=== PATIENT | male | born 1955 ===

== ENCOUNTER 2020-08-07 06:56 | Outpatient (REF) | payer MEDICARE, MEDICAID, SELFPAY ==
[2020-08-07 07:48] LABS: Anion Gap 12 (12-20); Blood Urea Nitrogen 11 mg/dL (9-16); Calcium 9.1 mg/dL (8.4-10.2); Carbon Dioxide 29 mmol/L (22-29); Chloride 98 mmol/L (96-108); Estimated Glomerular Filt Rate > 60; Glucose Random 330 mg/dL (60-115); Potassium 3.9 mmol/l (3.3-5.1); Sodium 135 mmol/L (135-145)
[2020-08-07 08:13] LABS: Free T4 (Free Thyroxine) 1.09 ng/dL (0.71-1.85); Vitamin D 25-OH Total 22.3 ng/mL (>30)
[2020-08-08 19:27] LABS: Lutenizing Hormone 4.2 mIU/mL (1.6-15.2); Triiodothyronine T3 Total 66 ng/dL (76-181)
[2020-08-08 21:48] LABS: Sex Hormone Binding Globulin 35 nmol/L (22-77)
[2020-08-08 23:21] LABS: Adrenocorticotropic Hormone 15 pg/mL (6-50)
[2020-08-12 15:42] LABS: Testosterone, Free 47.5 pg/mL (35.0-155.0); Testosterone, Total 299 ng/dL (250-1100)
== END 2020-08-07 06:57 | disposition home or self-care (01) ==
LOC: HO.LAB 06:56
PROVIDERS: Visit Provider Internal Medicine
DX: E27.40 Unspecified adrenocortical insufficiency (principal); E23.0 Hypopituitarism; E03.9 Hypothyroidism, unspecified; E55.9 Vitamin D deficiency, unspecified
CPT/HCPCS: 80048; 82024; 82306; 82533; 83001; 83002; 84270; 84402; 84403; 84439; 84443; 84480

== ENCOUNTER → 2020-09-05 07:36 | Outpatient (BNVA) | payer MEDICARE, MEDICAID, SELFPAY | PROVIDERS: Visit Provider Internal Medicine | DX: Z13.89 Encounter for screening for other disorder (principal) | CPT/HCPCS: Q3014 ==

== ENCOUNTER 2020-09-11 08:15 | Outpatient (REF) | payer MEDICARE, MEDICAID, SELFPAY ==
[2020-09-11 09:52] LABS: Anion Gap 10 (12-20); Blood Urea Nitrogen 12 mg/dL (9-16); Calcium 9.3 mg/dL (8.4-10.2); Carbon Dioxide 33 mmol/L (22-29); Chloride 101 mmol/L (96-108); Estimated Glomerular Filt Rate > 60; Glucose Random 173 mg/dL (60-115); Potassium 4.4 mmol/l (3.3-5.1); Sodium 140 mmol/L (135-145)
[2020-09-11 10:16] LABS: Free T4 (Free Thyroxine) 0.98 ng/dL (0.71-1.85); Thyroid Stimulating Hormone 4.92 uIU/mL (0.32-4.0); Vitamin D 25-OH Total 29.4 ng/mL (>30)
[2020-09-12 14:18] LABS: Triiodothyronine T3 Total 77 ng/dL (76-181)
[2020-09-12 22:53] LABS: Adrenocorticotropic Hormone 10 pg/mL (6-50)
== END 2020-09-11 08:16 | disposition home or self-care (01) ==
LOC: HO.LAB 08:15
PROVIDERS: Visit Provider Internal Medicine
DX: E55.9 Vitamin D deficiency, unspecified (principal); E03.9 Hypothyroidism, unspecified; E27.40 Unspecified adrenocortical insufficiency; E23.0 Hypopituitarism
CPT/HCPCS: 80048; 82024; 82306; 82533; 84439; 84443; 84480

== ENCOUNTER → 2020-10-24 13:17 | Outpatient (BNVA) | payer MEDICARE, MEDICAID, SELFPAY | PROVIDERS: Visit Provider Internal Medicine | DX: Z76.89 Persons encountering health services in other specified circumstances (principal) | CPT/HCPCS: Q3014 ==

== ENCOUNTER 2020-10-26 06:47 | Outpatient (REF) | payer MEDICARE, MEDICAID, SELFPAY ==
[2020-10-26 08:08] LABS: Anion Gap 13 (12-20); Blood Urea Nitrogen 13 mg/dL (9-16); Calcium 9.3 mg/dL (8.4-10.2); Carbon Dioxide 30 mmol/L (22-29); Chloride 99 mmol/L (96-108); Estimated Glomerular Filt Rate > 60; Glucose Random 365 mg/dL (60-115); Sodium 138 mmol/L (135-145)
[2020-10-26 08:09] LABS: Free T4 (Free Thyroxine) 1.02 ng/dL (0.71-1.85); Thyroid Stimulating Hormone 6.35 uIU/mL (0.32-4.0); Vitamin D 25-OH Total 32.4 ng/mL (>30)
[2020-10-27 04:03] LABS: Follicle Stimulating Hormone 4.9 mIU/mL (1.6-8.0); Lutenizing Hormone 4.9 mIU/mL (1.6-15.2); Triiodothyronine T3 Total 71 ng/dL (76-181)
[2020-10-27 05:57] LABS: Sex Hormone Binding Globulin 46 nmol/L (22-77)
[2020-10-29 23:01] LABS: Adrenocorticotropic Hormone 13 pg/mL (6-50)
[2020-10-31 12:22] LABS: Testosterone, Free 47.1 pg/mL (35.0-155.0); Testosterone, Total 341 ng/dL (250-1100)
== END 2020-10-26 06:48 | disposition home or self-care (01) ==
LOC: HO.LAB 06:47
PROVIDERS: PCP Internal Medicine; Visit Provider Internal Medicine
DX: E27.40 Unspecified adrenocortical insufficiency (principal); E03.9 Hypothyroidism, unspecified; E23.0 Hypopituitarism; E55.9 Vitamin D deficiency, unspecified
CPT/HCPCS: 36415; 80048; 82024; 82306; 82533; 83001; 83002; 84270; 84402; 84403; 84439; 84443; 84480

== ENCOUNTER → 2020-12-10 11:25 | Outpatient (BNVA) | payer MEDICARE, MEDICAID, SELFPAY | PROVIDERS: PCP Internal Medicine; Visit Provider Internal Medicine | DX: E27.40 Unspecified adrenocortical insufficiency (principal); E23.0 Hypopituitarism; E03.9 Hypothyroidism, unspecified; E55.9 Vitamin D deficiency, unspecified | CPT/HCPCS: Q3014 ==

== ENCOUNTER 2020-12-11 07:11 | Outpatient (REF) | payer MEDICARE, MEDICAID, SELFPAY ==
[2020-12-11 08:08] LABS: Anion Gap 15 (12-20); Blood Urea Nitrogen 14 mg/dL (9-16); Calcium 9.2 mg/dL (8.4-10.2); Carbon Dioxide 29 mmol/L (22-29); Chloride 98 mmol/L (96-108); Estimated Glomerular Filt Rate > 60; Glucose Random 255 mg/dL (60-115); Potassium 3.8 mmol/L (3.3-5.1); Sodium 138 mmol/L (135-145)
[2020-12-11 08:31] LABS: Free T4 (Free Thyroxine) 1.35 ng/dL (0.71-1.85); Thyroid Stimulating Hormone 1.65 uIU/mL (0.32-4.0); Vitamin D 25-OH Total 29.1 ng/mL (>30)
[2020-12-12 02:41] LABS: Triiodothyronine T3 Total 69 ng/dL (76-181)
[2020-12-12 04:41] LABS: Sex Hormone Binding Globulin 35 nmol/L (22-77)
[2020-12-12 23:26] LABS: Adrenocorticotropic Hormone 12 pg/mL (6-50)
[2020-12-17 15:12] LABS: Testosterone, Free 41.5 pg/mL (35.0-155.0); Testosterone, Total 290 ng/dL (250-1100)
== END 2020-12-11 07:12 | disposition home or self-care (01) ==
LOC: HO.LAB 07:11
PROVIDERS: PCP Internal Medicine; Visit Provider Internal Medicine
DX: E03.9 Hypothyroidism, unspecified (principal); E27.40 Unspecified adrenocortical insufficiency; E23.0 Hypopituitarism; E55.9 Vitamin D deficiency, unspecified
CPT/HCPCS: 36415; 80048; 82024; 82306; 82533; 84270; 84402; 84403; 84439; 84443; 84480

== ENCOUNTER → 2021-01-16 13:34 | Outpatient (BNVA) | payer MEDICARE, MEDICAID, SELFPAY | PROVIDERS: PCP Internal Medicine; Visit Provider Internal Medicine | CPT/HCPCS: Q3014 ==

== ENCOUNTER → 2021-03-20 12:15 | Outpatient (BNVA) | payer MEDICARE, MEDICAID, SELFPAY | PROVIDERS: PCP Internal Medicine; Visit Provider Internal Medicine | DX: E27.40 Unspecified adrenocortical insufficiency (principal); E23.0 Hypopituitarism; E03.9 Hypothyroidism, unspecified; N40.0 Benign prostatic hyperplasia without lower urinary tract symptoms; R53.83 Other fatigue; E55.9 Vitamin D deficiency, unspecified; Z87.891 Personal history of nicotine dependence; Z91.041 Radiographic dye allergy status; Z79.4 Long term (current) use of insulin; Z79.52 Long term (current) use of systemic steroids; Z79.899 Other long term (current) drug therapy | CPT/HCPCS: Q3014 ==

== ENCOUNTER → 2021-09-18 10:15 | Outpatient (BNVA) | payer MEDICARE, MEDICAID, SELFPAY | PROVIDERS: PCP Internal Medicine; Visit Provider Internal Medicine | DX: Z13.89 Encounter for screening for other disorder (principal) | CPT/HCPCS: Q3014 ==

== ENCOUNTER 2021-09-19 06:53 | Outpatient (REF) | payer MEDICARE, MEDICAID, SELFPAY ==
[2021-09-19 07:53] LABS: Anion Gap 10 (12-20); Blood Urea Nitrogen 15 mg/dL (9-16); Calcium 9.5 mg/dL (8.4-10.2); Carbon Dioxide 30 mmol/L (22-29); Chloride 103 mmol/L (96-108); Estimated Glomerular Filt Rate > 60; Glucose Random 262 mg/dL (60-115); Potassium 3.4 mmol/L (3.3-5.1); Sodium 140 mmol/L (135-145)
[2021-09-19 08:15] LABS: Free T4 (Free Thyroxine) 1.42 ng/dL (0.71-1.85); Thyroid Stimulating Hormone 0.09 uIU/mL (0.32-4.0); Vitamin D 25-OH Total 33.7 ng/mL (>30)
[2021-09-20 08:41] LABS: Triiodothyronine T3 Total 101 ng/dL (76-181)
[2021-09-20 09:11] LABS: Sex Hormone Binding Globulin 52 nmol/L (22-77)
[2021-09-22 15:07] LABS: Adrenocorticotropic Hormone 12 pg/mL (6-50)
[2021-09-24 20:41] LABS: Testosterone, Free 66.2 pg/mL (35.0-155.0); Testosterone, Total 444 ng/dL (250-1100)
== END 2021-09-19 06:54 | disposition home or self-care (01) ==
LOC: HO.LAB 06:53
PROVIDERS: Visit Provider Internal Medicine
DX: E27.40 Unspecified adrenocortical insufficiency (principal); E23.0 Hypopituitarism; E03.9 Hypothyroidism, unspecified; E55.9 Vitamin D deficiency, unspecified
CPT/HCPCS: 36415; 80048; 82024; 82306; 82533; 84270; 84402; 84403; 84439; 84443; 84480

== ENCOUNTER 2022-01-08 07:35 | Outpatient (REF) | payer MEDICARE, MEDICAID, SELFPAY ==
[2022-01-08 08:35] LABS: Anion Gap 10 (12-20); Blood Urea Nitrogen 17 mg/dL (9-16); Calcium 9.8 mg/dL (8.4-10.2); Carbon Dioxide 33 mmol/L (22-29); Chloride 102 mmol/L (96-108); Estimated Glomerular Filt Rate > 60; Glucose Random 182 mg/dL (60-115); Potassium 4.1 mmol/L (3.3-5.1); Sodium 141 mmol/L (135-145)
[2022-01-08 09:00] LABS: Free T4 (Free Thyroxine) 1.31 ng/dL (0.71-1.85); Thyroid Stimulating Hormone 2.65 uIU/mL (0.32-4.0); Vitamin D 25-OH Total 43.6 ng/mL (>30)
[2022-01-10 00:42] LABS: Sex Hormone Binding Globulin 67 nmol/L (22-77); Triiodothyronine T3 Total 76 ng/dL (76-181)
[2022-01-13 21:31] LABS: Adrenocorticotropic Hormone 18 pg/mL (6-50)
[2022-01-15 13:11] LABS: Testosterone, Free 40.6 pg/mL (35.0-155.0); Testosterone, Total 432 ng/dL (250-1100)
== END 2022-01-08 07:36 | disposition home or self-care (01) ==
LOC: HO.LAB 07:35
PROVIDERS: PCP Student in an Organized Health Care Education/Training Program; Visit Provider Internal Medicine
DX: E23.0 Hypopituitarism (principal); E03.9 Hypothyroidism, unspecified; E55.9 Vitamin D deficiency, unspecified; E27.40 Unspecified adrenocortical insufficiency
CPT/HCPCS: 36415; 80048; 82024; 82306; 82533; 84270; 84402; 84403; 84439; 84443; 84480

== ENCOUNTER → 2022-01-09 08:01 | Outpatient (BNVA) | payer MEDICARE, MEDICAID, SELFPAY | PROVIDERS: PCP Internal Medicine; Visit Provider Internal Medicine | DX: E23.0 Hypopituitarism (principal); E27.40 Unspecified adrenocortical insufficiency; E03.9 Hypothyroidism, unspecified; E55.9 Vitamin D deficiency, unspecified; Z79.52 Long term (current) use of systemic steroids; Z79.899 Other long term (current) drug therapy | CPT/HCPCS: Q3014 ==

== ENCOUNTER 2022-04-21 07:20 | Outpatient (REF) | payer MEDICARE, MEDICAID, SELFPAY ==
[2022-04-21 08:46] LABS: Anion Gap 14 (12-20); Blood Urea Nitrogen 13 mg/dL (9-16); Calcium 9.2 mg/dL (8.4-10.2); Carbon Dioxide 31 mmol/L (22-29); Chloride 101 mmol/L (96-108); Estimated Glomerular Filt Rate > 60; Glucose Random 91 mg/dL (60-115); Potassium 3.8 mmol/L (3.3-5.1); Sodium 142 mmol/L (135-145)
[2022-04-21 09:45] LABS: Cortisol Random 10.8 ug/dL
[2022-04-22 22:02] LABS: DHEA Sulfate 19 mcg/dL (20-217)
[2022-04-25 14:42] LABS: Adrenocorticotropic Hormone 19 pg/mL (6-50)
== END 2022-04-21 07:21 | disposition home or self-care (01) ==
LOC: HO.LAB 07:20
PROVIDERS: PCP Registered Nurse Psychiatric/Mental Health, Adult; Visit Provider Internal Medicine
DX: E27.40 Unspecified adrenocortical insufficiency (principal)
CPT/HCPCS: 36415; 80048; 82024; 82533; 82627

== ENCOUNTER 2022-05-10 07:42 | Outpatient (REF) | payer MEDICARE, MEDICAID, SELFPAY ==
[2022-05-10 08:42] LABS: Anion Gap 12 (12-20); Blood Urea Nitrogen 13 mg/dL (9-16); Calcium 9.2 mg/dL (8.4-10.2); Carbon Dioxide 34 mmol/L (22-29); Chloride 101 mmol/L (96-108); Estimated Glomerular Filt Rate > 60; Glucose Random 185 mg/dL (60-115); Sodium 143 mmol/L (135-145)
[2022-05-10 09:06] LABS: Free T4 (Free Thyroxine) 1.38 ng/dL (0.71-1.85); Thyroid Stimulating Hormone 0.56 uIU/mL (0.32-4.0)
== END 2022-05-10 07:43 | disposition home or self-care (01) ==
LOC: HO.LAB 07:42
PROVIDERS: Visit Provider Internal Medicine
DX: E27.40 Unspecified adrenocortical insufficiency (principal); E03.9 Hypothyroidism, unspecified
CPT/HCPCS: 36415; 80048; 84439; 84443

== ENCOUNTER → 2022-05-28 11:18 | Outpatient (BNVA) | payer MEDICARE, MEDICAID, SELFPAY | PROVIDERS: PCP Registered Nurse Psychiatric/Mental Health, Adult; Visit Provider Internal Medicine | DX: E23.0 Hypopituitarism (principal); E27.40 Unspecified adrenocortical insufficiency; E03.9 Hypothyroidism, unspecified; E55.9 Vitamin D deficiency, unspecified | CPT/HCPCS: 99212 ==

== ENCOUNTER → 2022-07-11 08:31 | Outpatient (BNVA) | payer MEDICARE, MEDICAID, SELFPAY | PROVIDERS: PCP Registered Nurse Psychiatric/Mental Health, Adult; Visit Provider Urology | DX: N40.0 Benign prostatic hyperplasia without lower urinary tract symptoms (principal); E23.0 Hypopituitarism | CPT/HCPCS: 51798; 99202 ==

== ENCOUNTER 2022-11-19 06:45 | Outpatient (REF) | payer MEDICARE, MEDICAID, SELFPAY ==
[2022-11-19 07:47] LABS: Cortisol Random 10.1 ug/dL
[2022-11-19 07:49] LABS: Free T4 (Free Thyroxine) 1.19 ng/dL (0.71-1.85); Thyroid Stimulating Hormone 2.19 uIU/mL (0.32-4.0); Vitamin D 25-OH Total 28.9 ng/mL (>30)
[2022-11-21 08:44] LABS: DHEA Sulfate 14 mcg/dL (20-217); Triiodothyronine T3 Total 57 ng/dL (76-181)
[2022-11-25 05:54] LABS: Adrenocorticotropic Hormone 13 pg/mL (6-50)
== END 2022-11-19 06:46 | disposition home or self-care (01) ==
LOC: HO.LAB 06:45
PROVIDERS: Visit Provider Internal Medicine
DX: E27.40 Unspecified adrenocortical insufficiency (principal); E03.9 Hypothyroidism, unspecified; E55.9 Vitamin D deficiency, unspecified
CPT/HCPCS: 36415; 82024; 82306; 82533; 82627; 84439; 84443; 84480

== ENCOUNTER → 2022-11-20 13:28 | Outpatient (BNVA) | payer MEDICARE, MEDICAID, SELFPAY | PROVIDERS: PCP Registered Nurse Psychiatric/Mental Health, Adult; Visit Provider Internal Medicine | DX: E11.9 Type 2 diabetes mellitus without complications (principal); E27.40 Unspecified adrenocortical insufficiency; E03.9 Hypothyroidism, unspecified; E23.0 Hypopituitarism; E55.9 Vitamin D deficiency, unspecified; Z79.4 Long term (current) use of insulin; Z79.899 Other long term (current) drug therapy | CPT/HCPCS: 82947; 83036; 99212 ==

== ENCOUNTER → 2023-03-11 14:20 | Outpatient (BNVA) | payer MEDICARE, MEDICAID, SELFPAY | PROVIDERS: Visit Provider Internal Medicine | DX: E27.40 Unspecified adrenocortical insufficiency (principal); E23.0 Hypopituitarism; E03.9 Hypothyroidism, unspecified; E55.9 Vitamin D deficiency, unspecified; E11.65 Type 2 diabetes mellitus with hyperglycemia; Z79.4 Long term (current) use of insulin | CPT/HCPCS: Q3014 ==

== ENCOUNTER 2023-03-12 07:43 | Outpatient (REF) | payer MEDICARE, MEDICAID, SELFPAY ==
[2023-03-12 09:10] LABS: Estimated Average Glucose 212 mg/dL
[2023-03-12 10:08] LABS: Creatinine Urine 72.84 mg/dL; Microalbum/Creatinine Ratio Ur 21.9 ug/mg cr
[2023-03-12 10:12] LABS: Cortisol Random 6.8 ug/dL
[2023-03-12 10:13] LABS: Alanine Aminotransferase 14 U/L (0-40); Albumin Level 4.1 g/dL (3.5-5.0); Alkaline Phosphatase 44 U/L (39-117); Anion Gap 12 (12-20); Aspartate Amino Transferase 14 U/L (5-37); Bilirubin Total 0.4 mg/dL (0.0-1.0); Blood Urea Nitrogen 13 mg/dL (9-16); Calcium 10.2 mg/dL (8.4-10.2); Carbon Dioxide 28 mmol/L (22-29); Chloride 107 mmol/L (96-108); Cholesterol 120 mg/dL; Estimated Glomerular Filt Rate > 60; Glucose Random 74 mg/dL (60-115); HDL Cholesterol 45 mg/dL; LDL Cholesterol Calculated 56 mg/dl; Potassium 4.4 mmol/L (3.3-5.1); Sodium 143 mmol/L (135-145); Total Protein 6.5 g/dL (6.5-8.0); Triglycerides 99 mg/dL
[2023-03-12 10:17] LABS: Free T4 (Free Thyroxine) 0.98 ng/dL (0.71-1.85); Thyroid Stimulating Hormone 1.32 uIU/mL (0.32-4.0)
[2023-03-14 16:03] LABS: Triiodothyronine T3 Total 78 ng/dL (76-181)
[2023-03-14 16:09] LABS: Sex Hormone Binding Globulin 50 nmol/L (22-77)
[2023-03-14 19:43] LABS: LDL Cholesterol Direct 61 mg/dL (<100)
[2023-03-17 22:43] LABS: Adrenocorticotropic Hormone 12 pg/mL (6-50)
[2023-03-21 14:13] LABS: Testosterone, Free 51.4 pg/mL (35.0-155.0); Testosterone, Total 425 ng/dL (250-1100)
== END 2023-03-12 07:44 | disposition home or self-care (01) ==
LOC: HO.LAB 07:43
PROVIDERS: Visit Provider Internal Medicine
DX: E11.9 Type 2 diabetes mellitus without complications (principal); E03.9 Hypothyroidism, unspecified; E27.40 Unspecified adrenocortical insufficiency; E55.9 Vitamin D deficiency, unspecified; E23.0 Hypopituitarism
CPT/HCPCS: 36415; 80053; 80061; 82024; 82043; 82306; 82533; 83036; 83721; 84270; 84402; 84403; 84439; 84443; 84480

== ENCOUNTER 2023-07-10 15:29 | Outpatient (AMB) | payer MEDICARE, MEDICAID, SELFPAY ==
--- NOTE | 2023-07-10 15:33 | A.OFFVIS_ITS ---
Intake Intake Visit Reasons: BPH- yearly follow up Intake Note: Patient is Present for Follow Up Urology Medication: Tamsulosin Antibiotic Allergies: Blood Thinners: Eliquis, Aspirin, Clopidogrel PVR: 50 Allergies Iodinated Contrast Media [IV Dye, Iodine Containing] Allergy (Mild, Verified 08/18/23 14:35) RASH IVP dye Allergy (Unknown, Uncoded 08/18/23 14:35) Unknown HPI HPI Comments History of Present Illness Details Karlos is a pleasant has male. He is a patient of Dr. Kennedy. He is seen for the following urologic conditions - lower urinary tract symptoms - variable testosterone - erectile dysfunction diabetic Left-sided testicular pain On exam has pain and head of the epididymis consistent with epididymitis 2 week antibiotic Unable to take anti-inflammatories 1 month Celebrex 6 week follow-up Lower urinary tract symptoms Prior laser procedure 2018 Previous prescriptions for oxybutynin and Myrbetriq Variable testosterone Evaluated with Endocrinology for low cortisol in early 2021 Baseline diabetic Found to have adrenal insufficiency Has responded well to low-dose prednisone Testosterone appears to have recovered - 01/03 T 432, 03/06 T 425, HBA1c 9.0% ON LICENSE OF [facility] Medical History T2DM (type 2 diabetes mellitus) Vitamin D deficiency Hypothyroidism Hypogonadotropic hypogonadism Adrenal insufficiency BPH (benign prostatic hyperplasia) Surgical History History of surgery Hx of eye surgery History of prostate surgery Hx of shoulder surgery Hx of hernia repair History of back surgery Family History Father No problems noted. Mother No problems noted. Social History Alcohol intake: current Alcohol intake frequency: does not drink Patient Tobacco Use Status: Former Tobacco user Review of Systems Const Denies chills and Denies fever(s) Card Reports no additional complaints and Denies syncope Resp Denies cough GI Denies abdominal pain and Denies heartburn Reports as per HPI and Denies change in libido Neuro Denies syncope Psych Denies change in libido Endo Denies change in libido Physical Exam Const General: cooperative, healthy appearing, comfortable and no acute distress Orientation/consciousness: patient oriented x3 HEENT Face and sinus: Yes normal facial exam Mouth: moist mucous membranes Neck Neck: Yes normal visual inspection, Yes full ROM and Yes trachea midline Chest Chest palpation & inspection: normal inspection of the chest Resp Effort & Inspection: normal respiratory effort, able to speak in complete sentences and no respiratory distress GI Inspection: Yes normal to inspection Back/Spine/Pelvis Cervical Spine: normal cervical lordosis Thoracic/Lumbar Spine: thoracic and lumbar spine normal to inspection Skin General skin exam: no rashes or lesions noted Neuro General: patient oriented x3, gait normal, tone normal and moves all extremities Extrem General: Yes normal to inspection and Yes capillary refill normal Office Procedures Post Void Residual Post Residual Void Post Void Residual (PVR): 50 05197-Pwnx Void Residual by ultrasound Assessment & Plan Assessment & Plan (1) Hypogonadotropic hypogonadism: Code(s): E23.0 - Hypopituitarism (2) BPH (benign prostatic hyperplasia): Code(s): N40.0 - Benign prostatic hyperplasia without lower urinary tract symptoms Plan Six week follow-up Trial anti-inflammatory Orders: Orders AMB Post Void Residual by ultrasound 07/10/23 N40.0 - Benign prostatic hyperplasia without lower urinary tract symptoms Patient Instructions: Imaging studies, laboratory and physical exam results were discussed and reviewed in detail. No major barriers to patient understanding were identified. An opportunity to ask questions regarding the treatment plan was provided. All questions were answered. The patient expressed understanding and agreement with the above treatment plan. The patient is aware they should contact our office by phone for worsening of their current condition or the appearance of new urologic symptoms. Compliance is encouraged with any medications and followup testing that is ordered. It is a privilege to participate in the urologic care of your patient. If you have any questions or concerns regarding treatment for the above conditions, or other urologic issues, please do not hesitate to contact me. The office telephone contact is [phone]. This note is constructed using voice recognition software. While every effort has been made to ensure accuracy rn dialysis errors may have been included. Yours sincerely, Dr Rad Hines MD, AJRETH [facility] - Urology Providers of Expert, Compassionate Care for the Genitourinary System Coding Level of Care Code Est Pt Level 4 (00405) Diagnoses Hypogonadotropic hypogonadism E23.0 BPH (benign prostatic hyperplasia) N40.0 CPT Codes Post Residual Void - PVR CPT Code: 35922-Emer Void Residual by ultrasound ([id number])
== END 2023-07-10 15:57 | disposition home or self-care (01) ==
PROVIDERS: Visit Provider Urology
DX: N45.1 Epididymitis (principal); E23.0 Hypopituitarism; N40.0 Benign prostatic hyperplasia without lower urinary tract symptoms
CPT/HCPCS: 99214

== ENCOUNTER → 2023-07-10 15:29 | Outpatient (BNVA) | payer MEDICARE, MEDICAID, SELFPAY | PROVIDERS: Visit Provider Urology | DX: N40.0 Benign prostatic hyperplasia without lower urinary tract symptoms (principal); E23.0 Hypopituitarism | CPT/HCPCS: 51798; 99212 ==

== ENCOUNTER 2023-08-18 13:51 | Outpatient (AMB) | payer MEDICARE, MEDICAID, SELFPAY ==
--- NOTE | 2023-08-18 14:15 | A.OFFVIS_ITS ---
Intake Intake Visit Reasons: 6w follow up Intake Note: Patient is Present for Follow Up Urology Medication: none Antibiotic Allergies: None Blood Thinners: Eliquis, Aspirin,Plavix PVR: 0 Allergies Iodinated Contrast Media [IV Dye, Iodine Containing] Allergy (Mild, Verified 08/18/23 14:35) RASH IVP dye Allergy (Unknown, Uncoded 08/18/23 14:35) Unknown HPI HPI Comments History of Present Illness Details Karlos is a pleasant has male. He is a patient of Dr. Kennedy. He is seen for the following urologic conditions - lower urinary tract symptoms - variable testosterone - erectile dysfunction diabetic Persistent mild left testicular epididymal head pain Completed 2 weeks antibiotics Review in 3 months Reassurance provided UA shows glucose in urine needs better control Lower urinary tract symptoms Prior laser procedure 2018 Previous prescriptions for oxybutynin and Myrbetriq Variable testosterone Evaluated with Endocrinology for low cortisol in early 2021 Baseline diabetic Found to have adrenal insufficiency Has responded well to low-dose prednisone Testosterone appears to have recovered - 01/03 T 432, 03/06 T 425, HBA1c 9.0% [facility] Medical History T2DM (type 2 diabetes mellitus) Vitamin D deficiency Hypothyroidism Hypogonadotropic hypogonadism Adrenal insufficiency BPH (benign prostatic hyperplasia) Surgical History History of surgery Hx of eye surgery History of prostate surgery Hx of shoulder surgery Hx of hernia repair History of back surgery Family History Father No problems noted. Mother No problems noted. Social History Alcohol intake: current Alcohol intake frequency: does not drink Patient Tobacco Use Status: Former Tobacco user Review of Systems Const Denies chills and Denies fever(s) Card Reports no additional complaints and Denies syncope Resp Denies cough GI Denies abdominal pain and Denies heartburn Reports as per HPI and Denies change in libido Neuro Denies syncope Psych Denies change in libido Endo Denies change in libido Physical Exam Const General: cooperative, healthy appearing, comfortable and no acute distress Orientation/consciousness: patient oriented x3 HEENT Face and sinus: Yes normal facial exam Mouth: moist mucous membranes Neck Neck: Yes normal visual inspection, Yes full ROM and Yes trachea midline Chest Chest palpation & inspection: normal inspection of the chest Resp Effort & Inspection: normal respiratory effort, able to speak in complete sentences and no respiratory distress GI Inspection: Yes normal to inspection Back/Spine/Pelvis Cervical Spine: normal cervical lordosis Thoracic/Lumbar Spine: thoracic and lumbar spine normal to inspection Skin General skin exam: no rashes or lesions noted Neuro General: patient oriented x3, gait normal, tone normal and moves all extremities Extrem General: Yes normal to inspection and Yes capillary refill normal Office Procedures Post Void Residual Post Residual Void Post Void Residual (PVR): 0 62715-Gdbd Void Residual by ultrasound Assessment & Plan Assessment & Plan (1) Hypogonadotropic hypogonadism: Code(s): E23.0 - Hypopituitarism Plan 3 month follow-up Orders: Orders AMB Post Void Residual by ultrasound Today N40.0 - Benign prostatic hyperplasia without lower urinary tract symptoms Patient Instructions: Imaging studies, laboratory and physical exam results were discussed and reviewed in detail. No major barriers to patient understanding were identified. An opportunity to ask questions regarding the treatment plan was provided. All questions were answered. The patient expressed understanding and agreement with the above treatment plan. The patient is aware they should contact our office by phone for worsening of their current condition or the appearance of new urologic symptoms. Compliance is encouraged with any medications and followup testing that is ordered. It is a privilege to participate in the urologic care of your patient. If you have any questions or concerns regarding treatment for the above conditions, or other urologic issues, please do not hesitate to contact me. The office telephone contact is [phone]. This note is constructed using voice recognition software. While every effort has been made to ensure accuracy belting cutter errors may have been included. Yours sincerely, Dr Rad Hines MD, JARETH [facility] - Urology Providers of Expert, Compassionate Care for the Genitourinary System Coding Level of Care Code Est Pt Level 3 (39631) Diagnoses Hypogonadotropic hypogonadism E23.0 CPT Codes Post Residual Void - PVR CPT Code: 45735-Vuar Void Residual by ultrasound ([id number])
== END 2023-08-18 14:49 | disposition home or self-care (01) ==
PROVIDERS: PCP Registered Nurse Psychiatric/Mental Health, Adult; Visit Provider Urology
DX: E23.0 Hypopituitarism (principal)
CPT/HCPCS: 99213

== ENCOUNTER → 2023-08-18 13:51 | Outpatient (BNVA) | payer MEDICARE, MEDICAID, SELFPAY | PROVIDERS: PCP Registered Nurse Psychiatric/Mental Health, Adult; Visit Provider Urology | DX: N40.1 Benign prostatic hyperplasia with lower urinary tract symptoms (principal); N13.8 Other obstructive and reflux uropathy; E23.0 Hypopituitarism; E11.69 Type 2 diabetes mellitus with other specified complication; N52.1 Erectile dysfunction due to diseases classified elsewhere; Z79.82 Long term (current) use of aspirin; Z79.01 Long term (current) use of anticoagulants | CPT/HCPCS: 51798; 99212 ==

== ENCOUNTER 2023-11-04 14:22 | Outpatient (AMB) | payer MEDICARE, MEDICAID, SELFPAY ==
[2023-11-04 14:24] VITALS: BP 136/64; PULSE 81; BMI 20.3
--- NOTE | 2023-11-04 14:24 | A.OFFVIS_ITS ---
<Statement entered by Trav Maria RN - 11/04/23 16:16> Patient given 10 units of Humalog in left upper arm at 2:40pm, per doctor order. Patient also stated he is afraid of needles. Intake Vital Signs 11/04/23 14:24 Height 5 ft 8 in Weight 133 lb 9.602 oz BMI 20.3 BP 136/64 Blood Pressure Location Lt brachial Position Sitting Pulse 81 Pulse Source Pulse Oximeter Intake Visit Reasons: DM-confirmed Intake Note: Patient presents today to follow up on D2MT. Previously seen by Dr. Mora on 03/11/23. Last Diabetic Eye exam: 2022 Last Podiatry Visit: None Random Glucose: 549 mg/dl 2:42 pm, 439 mg/dl 3:44 pm, 355 mg/dl 4:12 pm HgA1c: 13.0 % Program Advisor Required: Yes Program Advisor Language: Fashion Artist Name: Sandra medical staff Information Interpreted: non-clinical & clinical Accompanied by: Self / Same As Patient Allergies Iodinated Contrast Media [IV Dye, Iodine Containing] Allergy (Mild, Verified 11/04/23 14:32) RASH IVP dye Allergy (Unknown, Uncoded 11/04/23 14:32) Unknown HPI HPI Comments History of Present Illness Details 68 YO M who is seen in consultation for T2DM at the request of PCP. Patient was previously seen by Dr. Mora for secondary adrenal insufficiency, hypothyroidism and secondary hypogonadism. Today's visit will focus on the diabetes. Diabetes had not been addressed in previous visit Initially diagnosed with T2DM in 10- 15 yrs . Was initially started on treatment with . Current regimen trulicity 1.5 mg Qwkly stopped by PCP . Jardiance 25 mg QD Lantus 24 units metformin 1000 mg BID Unfortunately, the patient did not bring glucometer or log book to the follow-up visit Family history of T2DM in children and mother . Has eyes checked yearly, last eye exam 1 yr ago has appt this yr , denies retinopathy. Denies neuropathy, , sees podiatry next mo Denies nephropathy, on DUANE/ARB. UAC [] as measured on []. Has HLD, on statin. . Denies CAD. Had diabetes education in past . [facility] Medical History T2DM (type 2 diabetes mellitus) Vitamin D deficiency Hypothyroidism Hypogonadotropic hypogonadism Adrenal insufficiency BPH (benign prostatic hyperplasia) Surgical History History of surgery Hx of eye surgery History of prostate surgery Hx of shoulder surgery Hx of hernia repair History of back surgery Family History Father No problems noted. Mother No problems noted. Social History Alcohol intake: current Alcohol intake frequency: does not drink Patient Tobacco Use Status: Former Tobacco user Physical Exam Vital Signs: Last Vital Signs Pulse 81 11/04/23 14:24 BP 136/64 11/04/23 14:24 BMI result Body Mass Index 20.3 Results AMB Hemoglobin A1c AMB Hemoglobin A1c 13.0 % Last Edit by ARIE Sánchez on 11/04/23 14:56 Results Reviewed Results Reviewed: Laboratory Last Values Glucose (Clinic) 439 mg/dL (60-115) H* 11/04/23 15:44 Hgb A1c (Clinic) 13.0 % (4.0-6.0) H 11/04/23 14:41 Assessment & Plan Assessment & Plan (1) T2DM (type 2 diabetes mellitus): Code(s): E11.9 - Type 2 diabetes mellitus without complications Qualifiers: Diabetes mellitus complication status: with hyperglycemia Diabetes mellitus intermodal customer service insulin use: with intermodal customer service use Qualified Code(s): E11.65 - Type 2 diabetes mellitus with hyperglycemia; Z79.4 - intermediate (current) use of insulin Plan: This 68-year-old male with a history of type 2 diabetes being treated with Trulicity, Jardiance and basal insulin with questionable compliance with poor glycemic control and no known microvascular or macrovascular complications. Blood sugar today was > 500 Patient was given 10 units of Humalog. I went over the correlation of poor glycemic control to relationship of the development and progression complications with patient. Will send to breastfeeding educator and remote operations producer Orders: Orders AMB Hemoglobin A1c Today E11.9 - Type 2 diabetes mellitus without complications, [id number] Referrals Diabetes Education Referral E11.9 - Type 2 diabetes mellitus without complications Nutrition/Dietitian Referral E11.9 - Type 2 diabetes mellitus without complications Coding Level of Care Code Est Pt Level 4 (64282) Diagnoses Type 2 diabetes mellitus with hyperglycemia, with long-term current use of insulin E11.65; Z79.4 Diabetes mellitus complication status: with hyperglycemia Diabetes mellitus retirement insulin use: with intermodal customer service use
[2023-11-04 14:43] LABS: Glucose, Whole Blood 549 mg/dL (60-115)
--- NOTE | 2023-11-04 14:49 | AM.OFFVISNUR ---
Intake Vital Signs 11/04/23 14:24 Height 5 ft 8 in Weight 133 lb 9.602 oz BMI 20.3 BP 136/64 Blood Pressure Location Lt brachial Position Sitting Pulse 81 Pulse Source Pulse Oximeter Intake Visit Reasons: DM-confirmed Allergies Iodinated Contrast Media [IV Dye, Iodine Containing] Allergy (Mild, Verified 11/18/23 16:21) RASH IVP dye Allergy (Unknown, Uncoded 11/18/23 16:21) Unknown Nursing Note Patient presented to office for his first visit with Dr. Leonard. He had a POC of 549mg/dL. Patient was given 10 units of Humalog in the left upper arm per verbal order at 2:40pm. Repeat POC at 3:40pm was 439mg/dL. Dr said to wait another half hour and repeat POC a third time. POC at 4:15pm was 355mg/dL. Patient released home, per doctor. Results AMB Hemoglobin A1c AMB Hemoglobin A1c 13.0 % Last Edit by ARIE Sánchez on 11/04/23 14:56 Coding Diagnoses Type 2 diabetes mellitus with hyperglycemia, with long-term current use of insulin E11.65; Z79.4 Diabetes mellitus complication status: with hyperglycemia Diabetes mellitus exterminator helper insulin use: with exterminator helper use Assessment & Plan Assessment & Plan (1) T2DM (type 2 diabetes mellitus): Code(s): E11.9 - Type 2 diabetes mellitus without complications Category: Medical Qualifiers: Diabetes mellitus complication status: with hyperglycemia Diabetes mellitus exterminator helper insulin use: with exterminator helper use Qualified Code(s): E11.65 - Type 2 diabetes mellitus with hyperglycemia; Z79.4 - intermodal customer service (current) use of insulin Orders: Orders AMB Hemoglobin A1c 11/04/23 [id number], E11.9 - Type 2 diabetes mellitus without complications Referrals Diabetes Education Referral E11.9 - Type 2 diabetes mellitus without complications Nutrition/Dietitian Referral E11.9 - Type 2 diabetes mellitus without complications
[2023-11-04 15:47] LABS: Glucose, Whole Blood 439 mg/dL (60-115)
[2023-11-05 06:42] LABS: Glucose, Whole Blood 355 mg/dL (60-115)
--- NOTE | 2023-11-16 11:26 | MHC.AMDMED ---
Intake Vital Signs 11/04/23 14:24 Height 5 ft 8 in Weight 133 lb 9.602 oz BMI 20.3 BP 136/64 Blood Pressure Location Lt brachial Position Sitting Pulse 81 Pulse Source Pulse Oximeter Intake Visit Reasons: DM-confirmed Allergies Iodinated Contrast Media [IV Dye, Iodine Containing] Allergy (Mild, Verified 11/04/23 14:32) RASH IVP dye Allergy (Unknown, Uncoded 11/04/23 14:32) Unknown HPI Comprehensive Diabetes Asmnt Most Recent Diabetes Results: Microalb/Creat Ratio 21.9 ug/mg cr 03/12/23 Cholesterol 120 mg/dL 03/12/23 HDL Cholesterol 45 mg/dL 03/12/23 Triglycerides 99 mg/dL 03/12/23 Creatinine 0.60 mg/dL (0.5-1.4) 03/12/23 Blood Urea Nitrogen 13 mg/dL (9-16) 03/12/23 Sodium 143 mmol/L (135-145) 03/12/23 Potassium 4.4 mmol/L (3.3-5.1) 03/12/23 Chloride 107 mmol/L (96-108) 03/12/23 Carbon Dioxide 28 mmol/L (22-29) 03/12/23 Calcium 10.2 mg/dL (8.4-10.2) 03/12/23 AST 14 U/L (5-37) 03/12/23 ALT 14 U/L (0-40) 03/12/23 Total Protein 6.5 g/dL (6.5-8.0) 03/12/23 Albumin 4.1 g/dL (3.5-5.0) 03/12/23 [facility] Medical History T2DM (type 2 diabetes mellitus) Vitamin D deficiency Hypothyroidism Hypogonadotropic hypogonadism Adrenal insufficiency BPH (benign prostatic hyperplasia) Surgical History History of surgery Hx of eye surgery History of prostate surgery Hx of shoulder surgery Hx of hernia repair History of back surgery Family History Father No problems noted. Mother No problems noted. Social History Alcohol intake: current Alcohol intake frequency: does not drink Patient Tobacco Use Status: Former Tobacco user Physical Exam Vital Signs: Last Vital Signs Pulse 81 11/04/23 14:24 BP 136/64 11/04/23 14:24 BMI result Body Mass Index 20.3 Assessment & Plan Assessment & Plan (1) T2DM (type 2 diabetes mellitus): Code(s): E11.9 - Type 2 diabetes mellitus without complications Qualifiers: Diabetes mellitus intermediate insulin use: with intermodal truck driver use Diabetes mellitus complication status: with hyperglycemia Qualified Code(s): E11.65 - Type 2 diabetes mellitus with hyperglycemia; Z79.4 - halfway (current) use of insulin Plan: Chart opened in error Orders: Orders AMB Hemoglobin A1c 11/04/23 [id number], E11.9 - Type 2 diabetes mellitus without complications Referrals Diabetes Education Referral E11.9 - Type 2 diabetes mellitus without complications Nutrition/Dietitian Referral E11.9 - Type 2 diabetes mellitus without complications Coding Level of Care Code Est Pt Level 1 (55019) Diagnoses Type 2 diabetes mellitus with hyperglycemia, with long-term current use of insulin E11.65; Z79.4 Diabetes mellitus intermediate insulin use: with intermodal truck driver use Diabetes mellitus complication status: with hyperglycemia Results AMB Hemoglobin A1c AMB Hemoglobin A1c 13.0 % Last Edit by ARIE Sánchez on 11/04/23 14:56 Results Reviewed Results Reviewed: Laboratory Last Values Glucose (Clinic) 355 mg/dL (60-115) H* 11/04/23 16:12 Hgb A1c (Clinic) 13.0 % (4.0-6.0) H 11/04/23 14:41
== END 2023-11-04 16:04 | disposition home or self-care (01) ==
PROVIDERS: PCP Registered Nurse Psychiatric/Mental Health, Adult; Visit Provider Internal Medicine Endocrinology, Diabetes & Metabolism
DX: E11.65 Type 2 diabetes mellitus with hyperglycemia (principal); Z79.4 Long term (current) use of insulin
CPT/HCPCS: 99214

== ENCOUNTER → 2023-11-04 14:22 | Outpatient (BNVA) | payer MEDICARE, MEDICAID, SELFPAY | PROVIDERS: PCP Registered Nurse Psychiatric/Mental Health, Adult; Visit Provider Internal Medicine Endocrinology, Diabetes & Metabolism | DX: E11.65 Type 2 diabetes mellitus with hyperglycemia (principal); Z79.4 Long term (current) use of insulin | CPT/HCPCS: 82947; 99211; 99212 ==

== ENCOUNTER 2023-11-18 15:42 | Outpatient (AMB) | payer MEDICARE, MEDICAID, SELFPAY ==
--- NOTE | 2023-11-18 16:09 | MHC.OFFVIS ---
Intake Intake Visit Reasons: 3m follow up Intake Note: Patient presents today for a follow-up Meds- None Allergies to Antibiotic- No Known Allergies Blood Thinner- Eliquis Post Void Residual: 100 ml Salary And Wage Administrator Required: No Accompanied by: Self / Same As Patient Allergies Iodinated Contrast Media [IV Dye, Iodine Containing] Allergy (Mild, Verified 11/18/23 16:21) RASH IVP dye Allergy (Unknown, Uncoded 11/18/23 16:21) Unknown HPI HPI Comments History of Present Illness Details Karlos is a pleasant has male. He is a patient of Dr. Kennedy. He is seen for the following urologic conditions - lower urinary tract symptoms - variable testosterone - erectile dysfunction diabetic PVR today 100 cc Improvements 12 month follow-up UA shows glucose in urine needs better control Lower urinary tract symptoms Prior laser procedure 2018 Previous prescriptions for oxybutynin and Myrbetriq Variable testosterone Evaluated with Endocrinology for low cortisol in early 2021 Baseline diabetic Found to have adrenal insufficiency Has responded well to low-dose prednisone Testosterone appears to have recovered - 01/03 T 432, 03/06 T 425, HBA1c 9.0% [facility] Medical History T2DM (type 2 diabetes mellitus) Vitamin D deficiency Hypothyroidism Hypogonadotropic hypogonadism Adrenal insufficiency BPH (benign prostatic hyperplasia) Surgical History History of surgery Hx of eye surgery History of prostate surgery Hx of shoulder surgery Hx of hernia repair History of back surgery Family History Father No problems noted. Mother No problems noted. Social History Alcohol intake: current Alcohol intake frequency: does not drink Patient Tobacco Use Status: Former Tobacco user Review of Systems Const Denies chills and Denies fever(s) Card Reports no additional complaints and Denies syncope Resp Denies cough GI Denies abdominal pain and Denies heartburn Reports as per HPI and Denies change in libido Neuro Denies syncope Psych Denies change in libido Endo Denies change in libido Physical Exam Const General: cooperative, healthy appearing, comfortable and no acute distress Orientation/consciousness: patient oriented x3 HEENT Face and sinus: Yes normal facial exam Mouth: moist mucous membranes Neck Neck: Yes normal visual inspection, Yes full ROM and Yes trachea midline Chest Chest palpation & inspection: normal inspection of the chest Resp Effort & Inspection: normal respiratory effort, able to speak in complete sentences and no respiratory distress GI Inspection: Yes normal to inspection Back/Spine/Pelvis Cervical Spine: normal cervical lordosis Thoracic/Lumbar Spine: thoracic and lumbar spine normal to inspection Skin General skin exam: no rashes or lesions noted Neuro General: patient oriented x3, gait normal, tone normal and moves all extremities Extrem General: Yes normal to inspection and Yes capillary refill normal Office Procedures Post Void Residual Post Residual Void Post Void Residual (PVR): 100 [id number] Void Residual by ultrasound Assessment & Plan Assessment & Plan (1) Hypogonadotropic hypogonadism: Code(s): E23.0 - Hypopituitarism (2) BPH (benign prostatic hyperplasia): Code(s): N40.0 - Benign prostatic hyperplasia without lower urinary tract symptoms Plan Twelve month follow-up Orders: Orders AMB Post Void Residual by ultrasound 11/18/23 R33.9 - Retention of urine, unspecified Patient Instructions: Imaging studies, laboratory and physical exam results were discussed and reviewed in detail. No major barriers to patient understanding were identified. An opportunity to ask questions regarding the treatment plan was provided. All questions were answered. The patient expressed understanding and agreement with the above treatment plan. The patient is aware they should contact our office by phone for worsening of their current condition or the appearance of new urologic symptoms. Compliance is encouraged with any medications and followup testing that is ordered. It is a privilege to participate in the urologic care of your patient. If you have any questions or concerns regarding treatment for the above conditions, or other urologic issues, please do not hesitate to contact me. The office telephone contact is [phone]. This note is constructed using voice recognition software. While every effort has been made to ensure accuracy deep tissue massage therapist errors may have been included. Yours sincerely, Dr Rad Hines MD, [facility] - Urology Providers of Expert, Compassionate Care for the Genitourinary System Coding Level of Care Code Est Pt Level 3 (03880) Diagnoses Hypogonadotropic hypogonadism E23.0 BPH (benign prostatic hyperplasia) N40.0 CPT Codes Post Residual Void - PVR CPT Code: 62012-Mdew Void Residual by ultrasound ([id number])
== END 2023-11-18 16:40 | disposition home or self-care (01) ==
PROVIDERS: PCP Registered Nurse Psychiatric/Mental Health, Adult; Visit Provider Urology
DX: E23.0 Hypopituitarism (principal); N40.0 Benign prostatic hyperplasia without lower urinary tract symptoms
CPT/HCPCS: 99213

== ENCOUNTER → 2023-11-18 15:42 | Outpatient (BNVA) | payer MEDICARE, MEDICAID, SELFPAY | PROVIDERS: PCP Registered Nurse Psychiatric/Mental Health, Adult; Visit Provider Urology | DX: N40.0 Benign prostatic hyperplasia without lower urinary tract symptoms (principal); E23.0 Hypopituitarism | CPT/HCPCS: 51798; 99212 ==

== ENCOUNTER 2024-01-02 08:45 | Outpatient (REF) | payer MEDICARE, MEDICAID, SELFPAY ==
[2024-01-02 11:04] LABS: Appearance Urine Clear; Color Urine Yellow; Glucose Urine UA >=1000 mg/dL (Negative); Leukocyte Esterase Urine Negative (Negative); Nitrite Urine Negative (Negative); Specific Gravity - Urine >= 1.030 (1.005-1.025); UMIC TRIGGER UA YES; Urine Blood Negative (Negative); Urine Ketones Negative (Negative); Urine Protein Negative (Neg-Trace)
[2024-01-02 11:17] LABS: Bacteria Urine None Seen (None Seen); Hyaline Casts Urine 0-2 /LPF (0-2); RBC Urine 0-2 /HPF (0-2); Squamous Epithelial Cell Urine 0-2 /HPF (0-2); WBC Urine 0-5 /HPF (0-5)
[2024-01-02 11:22] LABS: Free T4 (Free Thyroxine) 1.19 ng/dL (0.71-1.85); Thyroid Stimulating Hormone 1.02 uIU/mL (0.32-4.0)
[2024-01-07 14:28] LABS: Testosterone, Total 324 ng/dL (250-1100)
== END 2024-01-02 08:46 | disposition home or self-care (01) ==
LOC: HO.LAB 08:45
PROVIDERS: Urology; Visit Provider Internal Medicine Endocrinology, Diabetes & Metabolism
DX: N40.0 Benign prostatic hyperplasia without lower urinary tract symptoms (principal); E03.9 Hypothyroidism, unspecified; E23.0 Hypopituitarism
CPT/HCPCS: 36415; 81001; 84402; 84403; 84439; 84443; 87086

== ENCOUNTER 2024-02-03 13:11 | Outpatient (AMB) | payer MEDICARE, MEDICAID, SELFPAY ==
[2024-02-03 13:13] VITALS: BP 102/68; PULSE 103; BMI 19.2
--- NOTE | 2024-02-03 13:13 | MHC.OFFVIS ---
Vital Signs 02/03/24 13:13 Height 5 ft 8 in Weight 126 lb 8.725 oz BMI 19.2 BP 102/68 Blood Pressure Location Lt brachial Position Sitting Pulse 103 H Pulse Source Pulse Oximeter Intake Visit Reasons: f/u T2DM/hypothyroidism,secondary hypogonadism-lvm Intake Note: Patient presents today to follow up on D2MT, Hypothyroidism and secondary Hypogonadism. Last Diabetic Eye exam: 2021 Last Podiatry Visit: 05/2023 Random Glucose: 373 mg/dl HgA1c: 12.3% Casing Mixer Required: Yes Casing Mixer Language: Surgical Aide Name: Nellie Accompanied by: Sister Allergies Iodinated Contrast Media [IV Dye, Iodine Containing] Allergy (Mild, Verified 02/03/24 13:20) RASH IVP dye Allergy (Unknown, Uncoded 02/03/24 13:20) Unknown HPI Comments Details: 68 YO M who is seen in consultation for T2DM at the request of PCP. Patient was previously seen by Dr. Mora for secondary adrenal insufficiency, hypothyroidism and secondary hypogonadism. Gonadal axis appears to have i recovered to normal. He is currently on prednisone 5 mg for secondary adrenal insufficiency Initially diagnosed with T2DM in 10- 15 yrs . Was initially started on treatment with . Current regimen trulicity 1.5 mg Qwkly not taking . Jardiance 25 mg QD not taking Lantus 24 units metformin 1000 mg BID Glucometer download shows she is checking his blood sugar sporadically there only 4 glucoses in the meter No hypoglycemia Family history of T2DM in children and mother . Has eyes checked yearly, last eye exam 1 yr ago needs to make appt , denies retinopathy. Denies neuropathy, , sees podiatry next mo Denies nephropathy, on DUANE/ARB. UAC [] as measured on []. Has HLD, on statin. . Denies CAD. Had diabetes education in past . He has Hypothyroidism and takes Levothyroxine 175 mcg PO daily. He takes this appropriately on an empty stomach. He denies symptoms of hyper or hypothyroidism. He does space this appropriately from his Iron pill. [facility] Medical History T2DM (type 2 diabetes mellitus) Vitamin D deficiency Hypothyroidism Hypogonadotropic hypogonadism Adrenal insufficiency BPH (benign prostatic hyperplasia) Surgical History History of surgery Hx of eye surgery History of prostate surgery Hx of shoulder surgery Hx of hernia repair History of back surgery Family History Father No problems noted. Mother No problems noted. Social History Alcohol intake: current Alcohol intake frequency: does not drink Patient Tobacco Use Status: Former Tobacco user Physical Exam Vital Signs: Last Vital Signs Pulse 103 H 02/03/24 13:13 BP 102/68 02/03/24 13:13 BMI result Body Mass Index 19.2 Absence of Cushingoid features. Absence of acromegalic features. Neck exam reveals nl size thyroid about 15 gms. No thyroid nodules palpable. No carotid bruits present. Lungs CTA. Heart S1 S2, Reg R/R. No M/R/ G. Skin exam reveals absence of vitiligo or acanthosis nigricans. Abdominal exam reveals Soft NT/ND with NA BS. No organomegaly present. Neck Other: . Extrem Other: Visual exam of foot performed. No ulcerations or open lesions. No onchomycosis, no callouses.Pulses 2 + distally Sensation intact to monofilament exam. Vibratory sensation sensed is intact with 128 Hz tuning fork Results AMB Hemoglobin A1c AMB Hemoglobin A1c 12.3 % Last Edit by ARIE Sánchez on 02/03/24 13:36 Assessment & Plan Assessment & Plan (1) T2DM (type 2 diabetes mellitus): Code(s): E11.9 - Type 2 diabetes mellitus without complications Category: Medical Qualifiers: Diabetes mellitus petroleum terminal plant operator insulin use: with usp use Diabetes mellitus complication status: with hyperglycemia Qualified Code(s): E11.65 - Type 2 diabetes mellitus with hyperglycemia; Z79.4 - intermission coordinator (current) use of insulin Plan: This 68-year-old male with a history of type 2 diabetes being treated with Trulicity, Jardiance and basal insulin with questionable compliance with poor glycemic control and no known microvascular or macrovascular complications. Plan is that the patient check his point of cares more frequently want to go on a sensor if covered by insurance.. I went over the correlation of poor glycemic control to relationship of the development and progression complications with patient with the help of Czech. Will again attempt to send to telehealth nurse educator and christmas tree farm crew boss (2) Hypogonadotropic hypogonadism: Code(s): E23.0 - Hypopituitarism Category: Medical Plan: He has secondary adrenal insufficiency is currently on prednisone 5 mg. Will switch patient to hydrocortisone 20 mg in a.m. and retested adrenal axis by having patient hold hydrocortisone for 24 hours obtaining an a.m. cortisol (3) Hypothyroidism: Code(s): E03.9 - Hypothyroidism, unspecified Category: Medical Qualifiers: Hypothyroidism type: unspecified Qualified Code(s): E03.9 - Hypothyroidism, unspecified Plan: Clinically and biochemically euthyroid on 175 mcg levothyroxine Plan is to continue the current management. In terms of the hypothyroidism, patient returned to the care of his primary care provider and back to endocrinology as needed (4) Adrenal insufficiency: Code(s): E27.40 - Unspecified adrenocortical insufficiency Category: Medical Plan See plan for adrenal insufficiency above Orders: Orders AMB Hemoglobin A1c Today E11.65 - Type 2 diabetes mellitus with hyperglycemia, Z13.9 - Encounter for screening, unspecified, Z79.4 - care home (current) use of insulin Cortisol Random Today E27.40 - Unspecified adrenocortical insufficiency Medications: New hydrocortisone 20 mg PO DAILY 30 tabs 5RF Discontinued prednisone E27.4, adrenal insufficiency Discontinued Reason: Doctor's Order 5 mg PO DAILY 30 tabs 11RF Coding Level of Care Code Est Pt Level 4 (56606) Diagnoses Type 2 diabetes mellitus with hyperglycemia, with long-term current use of insulin E11.65; Z79.4 Diabetes mellitus usp insulin use: with petroleum terminal plant operator use Diabetes mellitus complication status: with hyperglycemia Hypogonadotropic hypogonadism E23.0 Hypothyroidism, unspecified type E03.9 Hypothyroidism type: unspecified Adrenal insufficiency E27.40
[2024-02-03 18:12] LABS: Glucose, Whole Blood 373 mg/dL (60-115)
== END 2024-02-03 14:00 | disposition home or self-care (01) ==
LOC: HO.ENCR 13:11
PROVIDERS: PCP Registered Nurse Psychiatric/Mental Health, Adult; Visit Provider Internal Medicine Endocrinology, Diabetes & Metabolism
DX: E11.65 Type 2 diabetes mellitus with hyperglycemia (principal); Z79.4 Long term (current) use of insulin; E23.0 Hypopituitarism; E03.9 Hypothyroidism, unspecified; E27.40 Unspecified adrenocortical insufficiency; Z13.9 Encounter for screening, unspecified
CPT/HCPCS: 99214

== ENCOUNTER → 2024-02-03 13:11 | Outpatient (BNVA) | payer MEDICARE, MEDICAID, SELFPAY | PROVIDERS: PCP Registered Nurse Psychiatric/Mental Health, Adult; Visit Provider Internal Medicine Endocrinology, Diabetes & Metabolism | DX: E11.65 Type 2 diabetes mellitus with hyperglycemia (principal); E27.40 Unspecified adrenocortical insufficiency; E23.0 Hypopituitarism; E03.9 Hypothyroidism, unspecified; Z79.4 Long term (current) use of insulin | CPT/HCPCS: 82947; 83036; 99212 ==

== ENCOUNTER 2024-02-09 12:49 | Outpatient (AMB) | payer MEDICARE, MEDICAID, SELFPAY ==
[2024-02-09 13:00] VITALS: BMI 19.3
--- NOTE | 2024-02-09 13:15 | MHC.AMNUTRGE ---
VS Expanded 02/09/24 13:00 Height 5 ft 8 in Weight 127 lb BMI 19.3 Intake Visit Reasons: T2DM/LVM Allergies Iodinated Contrast Media [IV Dye, Iodine Containing] Allergy (Mild, Verified 02/03/24 13:20) RASH IVP dye Allergy (Unknown, Uncoded 02/03/24 13:20) Unknown Nutrition Presentation Details: Patient presents for medical nutrition therapy for type 2 diabetes with adrenal insufficiency. Patient was referred by Dr. Leonard, geothermal sheet metal worker Patient presents with during this appointment Patient reports Breakfast [place] with juice Lunch rice beans chicken, juice Dinner sandwich or rice beans chicken or cereal with milk Snacks on crackers or fruit or yogurt Physical activity daily life activities BS Monitoring Most Recent Diabetes Results: No Data to Display HMV-Tjtopab-Rw.Jeor Equation Height: 5 ft 8 in Weight: 127 lb Resting Metabolic Rate: 1320.51 Calculated Activity Level: Sedentary (+2000 for weight gain) Calories Needed to Maintain Weight: 1584.61 PFSH Medical History T2DM (type 2 diabetes mellitus) Vitamin D deficiency Hypothyroidism Hypogonadotropic hypogonadism Adrenal insufficiency BPH (benign prostatic hyperplasia) Surgical History History of surgery Hx of eye surgery History of prostate surgery Hx of shoulder surgery Hx of hernia repair History of back surgery Family History Father No problems noted. Mother No problems noted. Social History Alcohol intake: current Alcohol intake frequency: does not drink Patient Tobacco Use Status: Former Tobacco user Assessment & Plan Assessment & Plan (1) T2DM (type 2 diabetes mellitus): Code(s): E11.9 - Type 2 diabetes mellitus without complications Category: Medical Qualifiers: Diabetes mellitus petroleum terminal plant operator insulin use: with petroleum terminal plant operator use Diabetes mellitus complication status: with hyperglycemia Qualified Code(s): E11.65 - Type 2 diabetes mellitus with hyperglycemia; Z79.4 - [facility]FP (current) use of insulin Plan: Wt: 58 Kg ( 01/2024 ) Est kcal needs as per MSJ: 1800 + (40% carb, 30% protein/fat) Est fluid needs as per 25-30 ml/d: 1700 Est prot per day as per 1 g/kg bw: 58 Recommend fiber intake : 8-10 g per day and gradually increase to 25-28 g per day for women and 35-38 g for men or as tolerated Recommend sodium intake per day : less than 2000 mg Educated patient on: ( R = reviewed V = verbalizes understanding N/R = needs review N/A = not applicable Food sources of carbohydrate, adequate serving sizes and its role in various health conditions: R Differences between complex carbohydrates a simple carbohydrates, role of fiber in diet: R V N/R Lean protein sources of foods: R Differences between types of fats and role in diet (mono on saturated fat fatty acids, saturated fatty acids, trans fats): R V N/R Food sources of sodium in salt and healthy modifications for heart health in kidney health: R V R/V Vitamins and minerals: R Healthy plate method concept: R Physical activity: Benefits a precaution: R V N/R Hypoglycemia protocol (rule of 15): R Dietary prevention of Hyperglycemia: R V R/V Patient Instructions: Choose milk instead of fruit juices to have with your meals Add 2 servings of protein at breakfast (tuna, eggs, chicken, cheese) Take all your medications as prescribed by your provider including Creon Coding Level of Care Code Nutr Indiv Intake (12973) Diagnoses Type 2 diabetes mellitus with hyperglycemia, with long-term current use of insulin E11.65; Z79.4 Diabetes mellitus petroleum terminal plant operator insulin use: with petroleum terminal plant operator use Diabetes mellitus complication status: with hyperglycemia Time Spent (min) 30
[2024-02-15 14:38] VITALS: BMI 19.3
== END 2024-02-09 13:19 | disposition home or self-care (01) ==
LOC: HO.ENCR 12:49
PROVIDERS: PCP Registered Nurse Psychiatric/Mental Health, Adult; Visit Provider Dietitian, Registered
DX: E11.65 Type 2 diabetes mellitus with hyperglycemia (principal); Z79.4 Long term (current) use of insulin

== ENCOUNTER → 2024-02-09 12:49 | Outpatient (BNVA) | payer MEDICARE, MEDICAID, SELFPAY | PROVIDERS: PCP Registered Nurse Psychiatric/Mental Health, Adult; Visit Provider Dietitian, Registered | DX: E11.65 Type 2 diabetes mellitus with hyperglycemia (principal); Z79.4 Long term (current) use of insulin | CPT/HCPCS: 97802 ==

== ENCOUNTER 2024-03-15 11:09 | Outpatient (AMB) | payer MEDICARE, MEDICAID, SELFPAY ==
--- NOTE | 2024-03-15 11:57 | MHC.AMDMED ---
Intake Intake Visit Reasons: DM Allergies Iodinated Contrast Media [IV Dye, Iodine Containing] Allergy (Mild, Verified 02/03/24 13:20) RASH IVP dye Allergy (Unknown, Uncoded 02/03/24 13:20) Unknown HPI Comprehensive Diabetes Asmnt Most Recent Diabetes Results: Microalb/Creat Ratio 21.9 ug/mg cr 03/12/23 Cholesterol 120 mg/dL 03/12/23 HDL Cholesterol 45 mg/dL 03/12/23 Triglycerides 99 mg/dL 03/12/23 Creatinine 0.60 mg/dL (0.5-1.4) 03/12/23 Blood Urea Nitrogen 13 mg/dL (9-16) 03/12/23 Sodium 143 mmol/L (135-145) 03/12/23 Potassium 4.4 mmol/L (3.3-5.1) 03/12/23 Chloride 107 mmol/L (96-108) 03/12/23 Carbon Dioxide 28 mmol/L (22-29) 03/12/23 Calcium 10.2 mg/dL (8.4-10.2) 03/12/23 AST 14 U/L (5-37) 03/12/23 ALT 14 U/L (0-40) 03/12/23 Total Protein 6.5 g/dL (6.5-8.0) 03/12/23 Albumin 4.1 g/dL (3.5-5.0) 03/12/23 [facility] Medical History T2DM (type 2 diabetes mellitus) Vitamin D deficiency Hypothyroidism Hypogonadotropic hypogonadism Adrenal insufficiency BPH (benign prostatic hyperplasia) Surgical History History of surgery Hx of eye surgery History of prostate surgery Hx of shoulder surgery Hx of hernia repair History of back surgery Family History Father No problems noted. Mother No problems noted. Social History Alcohol intake: current Alcohol intake frequency: does not drink Patient Tobacco Use Status: Former Tobacco user Assessment & Plan Assessment & Plan (1) T2DM (type 2 diabetes mellitus): Code(s): E11.9 - Type 2 diabetes mellitus without complications Qualifiers: Diabetes mellitus complication status: with hyperglycemia Diabetes mellitus nursing home insulin use: with nursing home use Qualified Code(s): E11.65 - Type 2 diabetes mellitus with hyperglycemia; Z79.4 - intermodal dispatcher (current) use of insulin Plan: Learning objectives: The patient was provided with verbal and written education on the following topics as outlined below. The patient met all learning objectives and was able to verbalize understanding and provide teach back of education topics discussed . The patient was provided with the opportunity to ask questions and all questions were answered. Patient Assessment Assess patient education level/literacy/barriers, patient read foods from carb list given at today's visit Patient questions/concerns, patient's last A1c 12.3% in 02/03/2024. Patient reports having diabetes for over 40 years, does not recall if he has ever had Diabetes Education. Patient has seen registered dietitian. Patient is currently on Lantus 25 units Sounds like he is on mealtime insulin, but he does not know which one, patient's granddaughter will call when they get home with name of mealtime insulin Trulicity 1.5 mg weekly Jardiance 25 mg daily Metformin 1000 mg b.i.d. After review of patient's Dawna data patient is having downward excursion overnight, experiencing hypoglycemia early in the morning on some days. Recommended patient reduce Lantus from 25 units to 20 units, bring mealtime insulin with dosing to next visit In addition instructed patient to scan sensor every 4-6 hours while awake, and when he receives alerts What is Diabetes? Pathophysiology How the body produces and uses insulin Identify type of DM Risk factors Signs of Diabetes Brief overview of Diabetes Management Monitoring blood sugar Following a meal plan Regular exercise Maintaining a healthy weight Taking medication as needed Members of the care team (PCP, RN, MA, RD, CDE, ham trimmer) Blood glucose monitoring When/how often to test Target blood sugar ranges Patient using freestyle Dawna 2 Patient above target 57% Patient at target 40% Patient below target 3% Average glucose for the past 14 days to 23 mg/dL Active CGM 60% Introduction to Nutrition Importance of healthy diet in managing DM Diet is personalized to individual preference Review patient?s regular diet/food preferences Who prepares meals/does food shopping/ Dining out?/ Barriers? How diet effects glucose Eating 3 balanced meals a day with small, healthy snacks between meals Review food groups Carbohydrates: What is a carbohydrate/Which food/food groups are considered carbohydrates Effect of carbohydrates on blood glucose Portion sizes Reading food labels Basic carb counting (if applicable per nursing assessment) Plate method Meal planning Recommendations: Follow plate method, consistent carbs and read nutritional labels. Smart Goal: Educational Materials: The patient was provided with the following written educational materials: Planning Healthy Meals Handout Patient Response to instructions: Comprehension of Instructions: Fair Readiness to make changes: Contemplation How confident they feel about making changes: Positive Portions of this note were created using voice recognition software, please excuse any words or phrases that may have been misinterpreted. Patient Instructions: Reducir Lantus de 24 unidades a Lantus 20 unidades Seguimiento con enfermera de educaci?n sobre diabetes en 2 semanas. Coding Level of Care Code Est Pt Level 1 (26606) Diagnoses Type 2 diabetes mellitus with hyperglycemia, with long-term current use of insulin E11.65; Z79.4 Diabetes mellitus complication status: with hyperglycemia Diabetes mellitus ocean transportation intermediary insulin use: with nursing home use
== END 2024-03-15 12:00 | disposition home or self-care (01) ==
PROVIDERS: PCP Registered Nurse Psychiatric/Mental Health, Adult; Visit Provider Registered Nurse Diabetes Educator
DX: E11.65 Type 2 diabetes mellitus with hyperglycemia (principal); Z79.4 Long term (current) use of insulin

== ENCOUNTER → 2024-03-15 11:09 | Outpatient (BNVA) | payer MEDICARE, MEDICAID, SELFPAY | PROVIDERS: PCP Registered Nurse Psychiatric/Mental Health, Adult; Visit Provider Registered Nurse Diabetes Educator | DX: E11.65 Type 2 diabetes mellitus with hyperglycemia (principal); Z79.4 Long term (current) use of insulin | CPT/HCPCS: 99211 ==

== ENCOUNTER 2024-03-29 11:02 | Outpatient (AMB) | payer MEDICARE, MEDICAID, SELFPAY ==
--- NOTE | 2024-03-29 11:59 | MHC.AMDMED ---
Intake Intake Visit Reasons: DM/CONFIRMED Allergies Iodinated Contrast Media [IV Dye, Iodine Containing] Allergy (Mild, Verified 02/03/24 13:20) RASH IVP dye Allergy (Unknown, Uncoded 02/03/24 13:20) Unknown HPI Comprehensive Diabetes Asmnt Most Recent Diabetes Results: No Data to Display [facility] Medical History T2DM (type 2 diabetes mellitus) Vitamin D deficiency Hypothyroidism Hypogonadotropic hypogonadism Adrenal insufficiency BPH (benign prostatic hyperplasia) Surgical History History of surgery Hx of eye surgery History of prostate surgery Hx of shoulder surgery Hx of hernia repair History of back surgery Family History Father No problems noted. Mother No problems noted. Social History Alcohol intake: current Alcohol intake frequency: does not drink Patient Tobacco Use Status: Former Tobacco user Assessment & Plan Assessment & Plan (1) T2DM (type 2 diabetes mellitus): Code(s): E11.9 - Type 2 diabetes mellitus without complications Qualifiers: Diabetes mellitus complication status: with hyperglycemia Diabetes mellitus termite exterminator helper insulin use: with prison use Qualified Code(s): E11.65 - Type 2 diabetes mellitus with hyperglycemia; Z79.4 - shelter (current) use of insulin Plan: Personal Continuous Glucose Monitor: Patient is currently on Lantus 20 units daily Humalog 6 units before meals He still is not taking Trulicity and Jardiance, because his PCP told him to stop these medications. Patient does not recall the reason Recommended to patient he set up appointment for medication review with HUMAN RESOURCES TEAM MEMBER, if Trulicity and Jardiance are not appropriate there may be alternative medication Patients CGM information reviewed Reviewed patient's sensor data: Hypoglycemia: ? 0% Hyperglycemia:? 76% Time in Range:? 24% Average glucose for the last 2 weeks? 272 mg/dL Patient reports he forgot to take Lantus last night, recommended patient put alarm on his phone as a reminder to take basal insulin Discussed with patient how frequently he is forgetting mealtime insulin, patient denies missing Humalog doses In addition reviewed with patient switching from Dawna 2 sensor to Dawna 3 sensor, patient does not remember to scan from sensor frequently enough so there is gaps in patient's glucose data. Reviewed how to interpret trend arrows Reminded patient that to check finger sticks if symptoms do not match sensor reading. Discussed lag time between finger stick and sensor data.? Patient able to insert sensor independently at home without issue.? Portions of this note were created using voice recognition software, please excuse any words or phrases that may have been misinterpreted. Patient Instructions: Instructed patient to make appointment with HUMAN RESOURCES TEAM MEMBER for medication review Will follow-up with outreach educator a month after HUMAN RESOURCES TEAM MEMBER appointment Coding Level of Care Code Est Pt Level 1 (24945) Diagnoses Type 2 diabetes mellitus with hyperglycemia, with long-term current use of insulin E11.65; Z79.4 Diabetes mellitus complication status: with hyperglycemia Diabetes mellitus prison insulin use: with prison use
== END 2024-03-29 12:04 | disposition home or self-care (01) ==
PROVIDERS: PCP Registered Nurse Psychiatric/Mental Health, Adult; Visit Provider Registered Nurse Diabetes Educator
DX: E11.65 Type 2 diabetes mellitus with hyperglycemia (principal); Z79.4 Long term (current) use of insulin

== ENCOUNTER → 2024-03-29 11:02 | Outpatient (BNVA) | payer MEDICARE, MEDICAID, SELFPAY | PROVIDERS: PCP Registered Nurse Psychiatric/Mental Health, Adult; Visit Provider Registered Nurse Diabetes Educator | DX: E11.65 Type 2 diabetes mellitus with hyperglycemia (principal); Z79.4 Long term (current) use of insulin | CPT/HCPCS: 99211 ==

== ENCOUNTER 2024-04-08 13:21 | Outpatient (AMB) | payer MEDICARE, MEDICAID, SELFPAY ==
--- NOTE | 2024-04-08 13:24 | MHC.OFFVIS ---
Vital Signs 04/08/24 13:26 Height 5 ft 8 in Weight 132 lb 15.02 oz BMI 20.2 BP 130/70 Blood Pressure Location Rt brachial Position Sitting Pulse 72 Pulse Source Pulse Oximeter Intake Visit Reasons: DM/CONFIRMED Intake Note: New Patient presents today to establish treatment for Type 2 Diabetes Mellitus: Last Diabetic Eye exam: 2022 Last Podiatry Exam: Does not see a Lead Electrical Engineer Most recent HbA1c: 12.3%, 02/03/2024 Random Glucose- 341 mg/dL, Today Superintendent House Required: Yes Superintendent House Language: Boiler Repair Supervisor Services: Superintendent House Present Superintendent House Name: Amalia [id number] Information Interpreted: non-clinical & clinical Accompanied by: Grand Child Allergies Iodinated Contrast Media [IV Dye, Iodine Containing] Allergy (Mild, Verified 04/08/24 13:32) RASH IVP dye Allergy (Unknown, Uncoded 04/08/24 13:32) Unknown HPI Comments Details: 68 YO M who is seen in f/u for T2DM. He was last seen by Dr. Leonard two months ago. Patient was previously seen by Dr. Mora for secondary adrenal insufficiency, hypothyroidism and secondary hypogonadism. Gonadal axis appears to have recovered to normal. He was recently changed to Hydrocortisone 20 mg daily for secondary adrenal insufficiency from prednisone and needs to have an 08:00 cortisol drawn after withholding hydrocortisone for 24 hours. Initially diagnosed with T2DM in 10- 15 yrs . Was initially started on treatment with . Current regimen trulicity 1.5 mg Qwkly not taking . Jardiance 25mg Lantus 20 units metformin 1000 mg BID Humalog 6 units twice before meals when he remembers. He does this about twice per day Freestyle dawna sensor 2 average glucose: 240 Glucose Management indicator 9.1 TIme in range: Forty-three % very high (above 250) 23 % high (181-250) 34 % in range (70-180] 0 % low (69-55) 0 % very low (below 54) No hypoglycemia Family history of T2DM in children and mother . Has eyes checked yearly, denies retinopathy. Denies neuropathy, however monofilament and vibratory are diminished today Denies nephropathy, on DUANE/ARB. UAC [] as measured on [due for urine test]. Has HLD, on statin. . Denies CAD. He has Hypothyroidism and takes Levothyroxine 150mcg PO daily. He takes this appropriately on an empty stomach. He denies symptoms of hyper or hypothyroidism. He does space this appropriately from his Iron pill. [facility] Medical History T2DM (type 2 diabetes mellitus) Vitamin D deficiency Hypothyroidism Hypogonadotropic hypogonadism Adrenal insufficiency BPH (benign prostatic hyperplasia) Surgical History History of surgery Hx of eye surgery History of prostate surgery Hx of shoulder surgery Hx of hernia repair History of back surgery Family History Father No problems noted. Mother No problems noted. Social History Alcohol intake: current Alcohol intake frequency: does not drink Patient Tobacco Use Status: Former Tobacco user Physical Exam Vital Signs: Last Vital Signs Pulse 72 04/08/24 13:26 BP 130/70 04/08/24 13:26 BMI result Body Mass Index 20.2 Const General: cooperative Nutritional Appearance: cachectic Orientation/consciousness: oriented to person Limitations: no limitations Neck Neck: Yes normal visual inspection Thyroid: Thyroid normal Resp Effort & Inspection: normal respiratory effort Cardio Jugular venous distension: no JVD Rate: regular rate Rhythm: regular rhythm Heart sounds: S1 normal heart sound present and S2 normal heart sound present Neuro General: oriented to person Extrem Other: Visual exam of foot performed. No ulcerations or open lesions. No onchomycosis, no callouses. Sensation absent to monofilament exam. Vibratory sensation is absent with 128 Hz tuning fork. Results Reviewed Results Reviewed: Laboratory Last Values Glucose (Clinic) 341 mg/dL (60-115) H 04/08/24 13:39 Laboratory Tests 03/12/23 11/04/23 01/02/24 07:54 14:41 09:00 Hgb A1c (Clinic) 13.0 H Calcium 10.2 D Triglycerides 99 Cholesterol 120 LDL Cholesterol Direct 61 LDL Cholesterol, Calc 56 25-OH Vitamin D Total 36.0 Free T4 0.98 1.19 TSH 1.02 Total T3 78 Total Testosterone 324 Fr Testosterone Dialys 57.0 02/03/24 13:28 Hgb A1c (Clinic) 12.3 H Calcium Triglycerides Cholesterol LDL Cholesterol Direct LDL Cholesterol, Calc 25-OH Vitamin D Total Free T4 TSH Total T3 Total Testosterone Fr Testosterone Dialys Assessment & Plan Assessment & Plan (1) T2DM (type 2 diabetes mellitus): Code(s): E11.9 - Type 2 diabetes mellitus without complications Category: Medical Qualifiers: Diabetes mellitus nursing home insulin use: with remote computer terminal operator use Diabetes mellitus complication status: with hyperglycemia Qualified Code(s): E11.65 - Type 2 diabetes mellitus with hyperglycemia; Z79.4 - superintendent terminal (current) use of insulin Plan: Plan: This 68-year-old male with a history of type 2 diabetes being treated with Trulicity, Jardiance, basal insulin and two shots of humalog 6 units recently added with questionable compliance with poor glycemic control and no known microvascular or macrovascular complications. He is now on a freestyle Dawna 2 average glucose is 240 without hypoglycemia Plan is as follows: Check C-peptide kathy D antibodies Change Lantus to Tresiba 22 units. Change Trulicity to Ozempic 0.25 mg weekly continue Jardiance 25 mg. Continue metformin 1000 mg b.i.d. continue Humalog 6 units b.i.d. with meals. See patient back in 2 weeks to review readings Patient teaching: The patient was counseled to always carry a source of sugar and on the rule of 15's: Take 3 glucose tablets and repeat again in 15 minutes if blood sugar is not in normal range. Continue to repeat every 15 minutes until blood sugar is normal. The patient was counseled to achieve a target A1C of 7% (154 avg). Fasting blood sugars should be 90-130 in the morning and less than 180 two hours after meals. Reviewed the relationship between poor diabetic control and the development of complications The patient was counseled to wear closed toe shoes, never walk barefooted and to inspect the feet daily. For any signs of infection or open wound patient should notify PCP or go to urgent care. (2) Adrenal insufficiency: Code(s): E27.40 - Unspecified adrenocortical insufficiency Category: Medical Plan: He has secondary adrenal insufficiency and was recently changed to hydrocortisone 20mg by . We will plan to retest adrenal access by having patient hold hydrocortisone for 24 hours and obtain an 08:00 cortisol level. I extensively reviewed with the patient through the facilities maintenance manager the absolute importance of stopping the medication 24 hours before the test. After he has the test he will restart the hydrocortisone. If he continues to have secondary adrenal insufficiency, I would recommend that he purchase a medical alert bracelet. We will discuss at next visit Orders: Orders Cortisol Random Today E27.40 - Unspecified adrenocortical insufficiency Creatinine Urine 1 Week E11.65 - Type 2 diabetes mellitus with hyperglycemia, Z79.4 - retirement (current) use of insulin Islet Cell Antibody Scrn/Titer 1 Week E11.65 - Type 2 diabetes mellitus with hyperglycemia, Z79.4 - superintendent terminal (current) use of insulin Comprehensive Lam[place]. Panel Fast 1 Week E11.65 - Type 2 diabetes mellitus with hyperglycemia, Z79.4 - retirement (current) use of insulin Lipid Panel 1 Week E11.65 - Type 2 diabetes mellitus with hyperglycemia, Z79.4 - superintendent terminal (current) use of insulin Microalbumin, Random (w Creat) 1 Week E11.65 - Type 2 diabetes mellitus with hyperglycemia, Z79.4 - retirement (current) use of insulin C Peptide 1 Week E11.65 - Type 2 diabetes mellitus with hyperglycemia, Z79.4 - superintendent terminal (current) use of insulin Glutamic acid decarboxylase Ab 1 Week E11.65 - Type 2 diabetes mellitus with hyperglycemia, Z79.4 - retirement (current) use of insulin Medications: New insulin lispro (Humalog KwikPen (U-100) Insulin) before breakfast and supper 6 units (0.06 mL) subcut BID 30 days 3.6 mL 3RF E11.65 - Type 2 diabetes mellitus with hyperglycemia, Z79.4 - retirement (current) use of insulin insulin degludec (Tresiba FlexTouch U-200 insulin) 22 units (0.11 mL) subcut DAILY 30 days 3.3 mL 11RF E11.65 - Type 2 diabetes mellitus with hyperglycemia, Z79.4 - retirement (current) use of insulin semaglutide (Ozempic) for 4 weeks 0.25 mg (0.368 mL) subcut QWEEK 30 days 1.84 mL 2RF E11.65 - Type 2 diabetes mellitus with hyperglycemia, Z79.4 - retirement (current) use of insulin Changed From empagliflozin (Jardiance) 25 mg PO DAILY E11.65 - Type 2 diabetes mellitus with hyperglycemia, Z79.4 - superintendent terminal (current) use of insulin To empagliflozin (Jardiance) 25 mg PO DAILY 30 days 30 tabs 6RF E11.65 - Type 2 diabetes mellitus with hyperglycemia, Z79.4 - retirement (current) use of insulin Discontinued levothyroxine Discontinued Reason: Doctor's Order 175 mcg PO DAILY 90 tabs 2RF E03.9 - Hypothyroidism, unspecified Coding Level of Care Code Est Pt Level 5 (78557) Complex EM visit Add On G2211 Diagnoses Type 2 diabetes mellitus with hyperglycemia, with long-term current use of insulin E11.65; Z79.4 Diabetes mellitus nursing home insulin use: with nursing home use Diabetes mellitus complication status: with hyperglycemia Adrenal insufficiency E27.40 Time Spent (min) 60 Comment Time spent reviewing labs/previous provider notes, face to face, chart documentation
[2024-04-08 13:26] VITALS: BP 130/70; PULSE 72; BMI 20.2
[2024-04-08 13:42] LABS: Glucose, Whole Blood 341 mg/dL (60-115)
== END 2024-04-08 14:13 | disposition home or self-care (01) ==
PROVIDERS: PCP Registered Nurse Psychiatric/Mental Health, Adult; Visit Provider Nurse Practitioner Adult Health
DX: E11.65 Type 2 diabetes mellitus with hyperglycemia (principal); Z79.4 Long term (current) use of insulin; E27.40 Unspecified adrenocortical insufficiency
CPT/HCPCS: 99215; G2211; G2212

== ENCOUNTER → 2024-04-08 13:21 | Outpatient (BNVA) | payer MEDICARE, MEDICAID, SELFPAY | PROVIDERS: PCP Registered Nurse Psychiatric/Mental Health, Adult; Visit Provider Nurse Practitioner Adult Health | DX: E11.65 Type 2 diabetes mellitus with hyperglycemia (principal); E27.40 Unspecified adrenocortical insufficiency; Z79.4 Long term (current) use of insulin | CPT/HCPCS: 82947; 99212 ==

== ENCOUNTER 2024-05-31 08:27 | Outpatient (AMB) | payer MEDICARE, MEDICAID, SELFPAY ==
--- NOTE | 2024-05-31 08:31 | MHC.OFFVIS ---
Vital Signs 05/31/24 08:37 Height 5 ft 8 in Weight 141 lb 12.116 oz BMI 21.6 BP 118/58 L Blood Pressure Location Rt brachial Position Sitting Pulse 76 Pulse Source Pulse Oximeter Intake Visit Reasons: T2DM, hyypothyroidism, hypogodanism Intake Note: Patient present today to follow up on Type 2 Diabetes Mellitus, Hypothyroidism, and Hypogondaism. Last Diabetic Eye exam: over 1 year Last Podiatry Visit: Doese not see a Warehouse Record Clerk Random Glucose: 222 mg/dl HgA1C: 10.1% 05/31/2024 Certified Surgical Technologist Required: Yes Certified Surgical Technologist Language: Candle Extrusion Machine Operator Services: Certified Surgical Technologist Offered & Declined Accompanied by: Grandchild Allergies Iodinated Contrast Media [IV Dye, Iodine Containing] Allergy (Mild, Verified 05/31/24 08:38) RASH IVP dye Allergy (Unknown, Uncoded 05/31/24 08:38) Unknown Medication List - Last Reconciled 05/31/24 by Zaid Leonard MD acetaminophen ER 1,300 mg PO Q8H PRN alcohol swabs pad topical DAILY amitriptyline 10 mg PO BEDTIME apixaban (Eliquis) 5 mg PO BID ascorbic acid (vitamin C) 500 mg PO DAILY aspirin 81 mg PO DAILY atorvastatin 80 mg PO DAILY blood sugar diagnostic (ThirstyTouch Ultra Test strips) 3x daily blood-glucose meter As directed blood-glucose sensor (CurefabStyle Dawna 3 Sensor device) As directed change every 14 days cetirizine 10 mg PO DAILY PRN cholecalciferol (vitamin D3) 100 mcg (2 x 50 mcg (2,000 unit)) PO DAILY cyclobenzaprine 10 mg PO TID PRN diazepam 2 mg PO QID dulaglutide (Trulicity) 1.5 mg subcut QWEEK 30 days empagliflozin (Jardiance) 25 mg PO DAILY 30 days ferrous sulfate 325 mg PO DAILY hydrocortisone 20 mg PO DAILY insulin degludec (Tresiba FlexTouch U-200 insulin) 22 units (0.11 mL) subcut DAILY 30 days insulin lispro (Humalog KwikPen (U-100) Insulin) 8 units subcut BID ketorolac 0.5% 1 drp ophthalmic (eye) BID lancets 3x daily levothyroxine 150 mcg PO DAILY linaclotide 290 mcg PO DAILY linaclotide (Linzess) 290 mcg PO DAILY vbegag-evozlfqf-afsglrf 6,000-19,000 -30,000 unit (Creon) 1 cap PO TID lisinopril 20 mg PO DAILY magnesium glycinate 100 mg PO DAILY meloxicam 15 mg PO DAILY metformin 1,000 mg PO BID methocarbamol 750 mg PO Q6H metoprolol tartrate 50 mg PO BID pantoprazole 40 mg PO pantoprazole 75 mg PO DAILY pen needle, diabetic (BD Ultra-Fine Short Pen Needle) As directed rosuvastatin 10 mg PO DAILY sucralfate 1 g PO TID tamsulosin 0.4 mg PO DAILY verapamil ER 180 mg PO DAILY HPI Comments Details: 68 YO M who is seen in consultation for T2DM at the request of PCP. Patient was previously seen by Dr. Mora for secondary adrenal insufficiency, hypothyroidism and secondary hypogonadism. Gonadal axis appears to have i recovered to normal. He is currently on prednisone 5 mg for secondary adrenal insufficiency Initially diagnosed with T2DM in 10- 15 yrs . Was initially started on treatment with . Current regimen trulicity 1.5 mg Qwkly not taking . Jardiance 25 mg QD not taking Lantus 24 units and Humalog scale 8 units twice a day metformin 1000 mg BID Dawna shows using sensor 74% of time. Avg glucose is 171 with GMI of 7.4 and variability of 46.5. 53% in range with 42% hyperglycemia and 5 % hypoglycemia. Pattern shows decling POC over night hypoglycemia 3X wk Family history of T2DM in children and mother . Has eyes checked yearly, last eye exam 1 yr ago needs to make appt , denies retinopathy. Denies neuropathy, , sees podiatry next mo Denies nephropathy, on DUANE/ARB. UAC [] as measured on []. Has HLD, on statin. . Denies CAD. Had diabetes education in past . He has Hypothyroidism and takes Levothyroxine 175 mcg PO daily. He takes this appropriately on an empty stomach. He denies symptoms of hyper or hypothyroidism. He does space this appropriately from his Iron pill. Was hospitalized several times [facility] but records are not available. [facility] Medical History T2DM (type 2 diabetes mellitus) Vitamin D deficiency Hypothyroidism Hypogonadotropic hypogonadism Adrenal insufficiency BPH (benign prostatic hyperplasia) Surgical History History of surgery Hx of eye surgery History of prostate surgery Hx of shoulder surgery Hx of hernia repair History of back surgery Family History Father No problems noted. Mother No problems noted. Social History Alcohol intake: current Alcohol intake frequency: does not drink Patient Tobacco Use Status: Former Tobacco user Physical Exam Vital Signs: Last Vital Signs Pulse 76 05/31/24 08:37 BP 118/58 L 05/31/24 08:37 BMI result Body Mass Index 21.6 Absence of Cushingoid features. Absence of acromegalic features. Neck exam reveals nl size thyroid about 15 gms. No thyroid nodules palpable. No carotid bruits present. Lungs CTA. Heart S1 S2, Reg R/R. No M/R/ G. Skin exam reveals absence of vitiligo or acanthosis nigricans. Abdominal exam reveals Soft NT/ND with NA BS. No organomegaly present. Neck Other: . Extrem Other: Visual exam of foot performed. No ulcerations or open lesions. No onchomycosis, no callouses.Pulses 2 + distally Sensation intact to monofilament exam. Vibratory sensation sensed is intact with 128 Hz tuning fork Results AMB Hemoglobin A1c AMB Hemoglobin A1c 10.1 % Last Edit by ARIE Bustillos on 05/31/24 08:54 Results Reviewed Results Reviewed: Laboratory Last Values Glucose (Clinic) 222 mg/dL (60-115) H 05/31/24 08:45 Hgb A1c (Clinic) 10.1 % (4.0-6.0) H 05/31/24 08:48 Assessment & Plan Assessment & Plan (1) T2DM (type 2 diabetes mellitus): Code(s): E11.9 - Type 2 diabetes mellitus without complications Category: Medical Qualifiers: Diabetes mellitus complication status: with hyperglycemia Diabetes mellitus epidemiology intern insulin use: with fci use Qualified Code(s): E11.65 - Type 2 diabetes mellitus with hyperglycemia; Z79.4 - historical manuscripts curator (current) use of insulin Plan: This 68-year-old male with a history of type 2 diabetes being treated with Trulicity, Jardiance and basal- bolus insulin with questionable compliance with poor glycemic control and no known microvascular or macrovascular complications. Plan is decrease Lantus to 18 units and increase Humalog 10 units . Will have patient report any hypoglycemia. Will check microalbumin to creatinine ratio lipid profile. Will have patient follow up with Carmen Salgado NP in 4 wks (2) Hypogonadotropic hypogonadism: Code(s): E23.0 - Hypopituitarism Category: Medical Plan: He has secondary adrenal insufficiency is currently on hydrocortisone 20 mg. Will check results of a.m. cortisol if the patient held hydrocortisone for 24 hours that was done at [facility] (lab [facility]) to assess adrenal axis. Will obtain inpatient records from [facility] regarding admissions (3) Hypothyroidism: Code(s): E03.9 - Hypothyroidism, unspecified Category: Medical Qualifiers: Hypothyroidism type: unspecified Qualified Code(s): E03.9 - Hypothyroidism, unspecified Plan: Clinically and biochemically euthyroid on 175 mcg levothyroxine Plan is to continue the current management. In terms of the hypothyroidism, patient returned to the care of his primary care provider and back to endocrinology as needed (4) Adrenal insufficiency: Code(s): E27.40 - Unspecified adrenocortical insufficiency Category: Medical Plan See plan for adrenal insufficiency above Orders: Orders AMB Hemoglobin A1c Today E11.65 - Type 2 diabetes mellitus with hyperglycemia, Z79.4 - historical manuscripts curator (current) use of insulin Coding Level of Care Code Est Pt Level 4 (78998) Complex EM visit Add On G2211 Diagnoses Type 2 diabetes mellitus with hyperglycemia, with long-term current use of insulin E11.65; Z79.4 Diabetes mellitus complication status: with hyperglycemia Diabetes mellitus fci insulin use: with epidemiology intern use Hypogonadotropic hypogonadism E23.0 Hypothyroidism, unspecified type E03.9 Hypothyroidism type: unspecified Adrenal insufficiency E27.40
[2024-05-31 08:37] VITALS: BP 118/58; PULSE 76; BMI 21.6
[2024-05-31 08:49] LABS: Glucose, Whole Blood 222 mg/dL (60-115)
== END 2024-05-31 09:21 | disposition home or self-care (01) ==
PROVIDERS: PCP Registered Nurse Psychiatric/Mental Health, Adult; Visit Provider Internal Medicine Endocrinology, Diabetes & Metabolism
DX: E11.65 Type 2 diabetes mellitus with hyperglycemia (principal); Z79.4 Long term (current) use of insulin; E23.0 Hypopituitarism; E03.9 Hypothyroidism, unspecified; E27.40 Unspecified adrenocortical insufficiency
CPT/HCPCS: 99214; G2211

== ENCOUNTER → 2024-05-31 08:27 | Outpatient (BNVA) | payer MEDICARE, MEDICAID, SELFPAY | PROVIDERS: PCP Registered Nurse Psychiatric/Mental Health, Adult; Visit Provider Internal Medicine Endocrinology, Diabetes & Metabolism | DX: E11.65 Type 2 diabetes mellitus with hyperglycemia (principal); E03.9 Hypothyroidism, unspecified; E23.0 Hypopituitarism; E27.40 Unspecified adrenocortical insufficiency; Z79.4 Long term (current) use of insulin; Z79.84 Long term (current) use of oral hypoglycemic drugs | CPT/HCPCS: 82947; 83036; 99212 ==

== ENCOUNTER 2024-06-24 09:01 | Outpatient (REF) | payer MEDICARE, MEDICAID, SELFPAY ==
[2024-06-24 10:21] LABS: Creatinine Urine 119.59 mg/dL; Microalbum/Creatinine Ratio Ur 129.6 ug/mg cr (<30)
[2024-06-24 10:22] LABS: Alanine Aminotransferase 14 U/L (0-40); Albumin Level 4.4 g/dL (3.5-5.0); Alkaline Phosphatase 55 U/L (39-117); Anion Gap 11 (12-20); Aspartate Amino Transferase 17 U/L (5-37); Bilirubin Total 0.5 mg/dL (0.0-1.0); Blood Urea Nitrogen 11 mg/dL (9-16); Calcium 9.9 mg/dL (8.4-10.2); Carbon Dioxide 32 mmol/L (22-29); Chloride 103 mmol/L (96-108); Cholesterol 137 mg/dL (<200); Estimated Glomerular Filt Rate > 60; Glucose Fasting 104 mg/dL (60-99); HDL Cholesterol 55 mg/dL (>40); LDL Cholesterol Calculated 56 mg/dL (<100); Potassium 4.2 mmol/L (3.3-5.1); Sodium 142 mmol/L (135-145); Total Protein 6.8 g/dL (6.5-8.0); Triglycerides 131 mg/dL (<150)
[2024-06-24 10:48] LABS: Cortisol Random 1.2 ug/dL
[2024-06-26 09:38] LABS: C Peptide 0.68 ng/mL (0.80-3.85)
[2024-06-29 16:54] LABS: Glutamic acid decarboxylase Ab <5 IU/mL (<5)
[2024-07-05 23:29] LABS: Islet Cell Antibody Screen NEGATIVE (NEGATIVE)
== END 2024-06-24 09:02 | disposition home or self-care (01) ==
LOC: HO.LAB 09:01
PROVIDERS: Absent Provider Nurse Practitioner Adult Health; PCP Pediatrics; Visit Provider Internal Medicine Endocrinology, Diabetes & Metabolism
DX: E11.65 Type 2 diabetes mellitus with hyperglycemia (principal); Z79.4 Long term (current) use of insulin; E27.40 Unspecified adrenocortical insufficiency
CPT/HCPCS: 36415; 80053; 80061; 82043; 82533; 82570; 84681; 86341

== ENCOUNTER 2024-11-16 15:21 | Outpatient (AMB) | payer MEDICARE, MEDICAID, SELFPAY ==
--- NOTE | 2024-11-16 15:35 | A.OFFVIS_ITS ---
Intake Visit Reasons: 1y follow up/BPH(SET) Intake Note: Patient presents today for a 1Y follow-up/BPH Meds- None Allergies to Antibiotic- NONE Blood Thinner- Eliquis,ASPIRIN Post Void Residual: 100 ml'S TODAY'S PVR:0ML'S Senior Electrical Estimator Required: No Accompanied by: Self / Same As Patient Allergies Iodinated Contrast Media [IV Dye, Iodine Containing] Allergy (Mild, Verified 11/16/24 15:36) RASH IVP dye Allergy (Unknown, Uncoded 11/16/24 15:36) Unknown HPI Comments Details: Karlos is a pleasant has male. He is a patient of Dr. Kennedy. He is seen for the following urologic conditions - lower urinary tract symptoms - variable testosterone - erectile dysfunction diabetic PVR today 0 cc Effective bladder emptying and urinary stream UA 3+ glucose Tamsulosin 0.4 mg daily Review in 12 months Lower urinary tract symptoms Prior laser procedure 2018 Previous prescriptions for oxybutynin and Myrbetriq Variable testosterone Evaluated with Endocrinology for low cortisol in early 2021 Baseline diabetic Found to have adrenal insufficiency Has responded well to low-dose prednisone Testosterone appears to have recovered - 01/03 T 432, 03/06 T 425, HBA1c 9.0% [facility] Medical History T2DM (type 2 diabetes mellitus) Vitamin D deficiency Hypothyroidism Hypogonadotropic hypogonadism Adrenal insufficiency BPH (benign prostatic hyperplasia) Surgical History History of surgery Hx of eye surgery History of prostate surgery Hx of shoulder surgery Hx of hernia repair History of back surgery Family History Father No problems noted. Mother No problems noted. Social History Alcohol intake: current Alcohol intake frequency: does not drink Patient Tobacco Use Status: Former Tobacco user Review of Systems Const Denies chills and Denies fever(s) Card Reports no additional complaints and Denies syncope Resp Denies cough GI Denies abdominal pain and Denies heartburn Reports as per HPI and Denies change in libido Neuro Denies syncope Psych Denies change in libido Endo Denies change in libido Physical Exam Const General: cooperative, healthy appearing, comfortable and no acute distress Orientation/consciousness: patient oriented x3 HEENT Face and sinus: Yes normal facial exam Mouth: moist mucous membranes Neck Neck: Yes normal visual inspection, Yes full ROM and Yes trachea midline Chest Chest palpation & inspection: normal inspection of the chest Resp Effort & Inspection: normal respiratory effort, able to speak in complete sentences and no respiratory distress GI Inspection: Yes normal to inspection Back/Spine/Pelvis Cervical Spine: normal cervical lordosis Thoracic/Lumbar Spine: thoracic and lumbar spine normal to inspection Skin General skin exam: no rashes or lesions noted Neuro General: patient oriented x3, gait normal, tone normal and moves all extremities Extrem General: Yes normal to inspection and Yes capillary refill normal Office Procedures Post Void Residual Post Residual Void Post Void Residual (PVR): 0 [id number] Void Residual by ultrasound Results AMB Urinalysis, Automated UA Leukoctes 0 Lucía/uL Last Edit by AURORA Guaman on 11/16/24 15:48 UA Nitrite Negative Last Edit by Anne-Marie Barry CCM on 11/16/24 15:48 UA Urobilinogen 17 mg/dL Last Edit by Anne-Marie Barry CCM on 11/16/24 15:48 UA Protein 15 mg/dL Last Edit by AURORA Guaman on 11/16/24 15:48 UA pH 5.5 Last Edit by Anne-Marie Barry CCM on 11/16/24 15:48 UA Blood 0 Ramin/uL Last Edit by AURORA Guaman on 11/16/24 15:48 UA Specific [place] 1.020 Last Edit by AURORA Guaman on 11/16/24 15: 48 UA Ketone Negative Last Edit by AURORA Guaman on 11/16/24 15:48 UA Bilirubin 0 mg/dL Last Edit by AURORA Guaman on 11/16/24 15:48 UA Glucose 60 mg/dL Last Edit by Anne-Marie Barry CCM on 11/16/24 15:48 Results Reviewed Results Reviewed: Laboratory Last Values Urine pH (Auto) 5.5 11/16/24 15:47 Specific [place] (Auto) 1.020 11/16/24 15:47 Urine Protein (Auto) 15 mg/dL 11/16/24 15:47 Glucose (UA)(Auto) 60 mg/dL 11/16/24 15:47 Urine Ketones (Auto) Negative 11/16/24 15:47 Urine Blood (Auto) 0 Ramin/uL 11/16/24 15:47 Urine Nitrite (Auto) Negative 11/16/24 15:47 Urine Bilirubin (Auto) 0 mg/dL 11/16/24 15:47 Urine Urobilinogen (Auto) 17 mg/dL 11/16/24 15:47 Leukocyte Esterase (Auto) 0 Lucía/uL 11/16/24 15:47 Assessment & Plan Assessment & Plan (1) BPH (benign prostatic hyperplasia): Code(s): N40.0 - Benign prostatic hyperplasia without lower urinary tract symptoms Category: Medical (2) Hypogonadotropic hypogonadism: Code(s): E23.0 - Hypopituitarism Category: Medical Plan 12 month follow-up Orders: Orders AMB Urinalysis Automated Today Z13.9 - Encounter for screening, unspecified Patient Instructions: This note is constructed using voice recognition software. While every effort has been made to ensure accuracy intranet developer errors may have been included. Imaging studies, laboratory and physical exam results were discussed and reviewed in detail. No major barriers to patient understanding were identified. An opportunity to ask questions regarding the treatment plan was provided. All questions were answered. The patient expressed understanding and agreement with the above treatment plan. The patient is aware they should contact our office by phone for worsening of their current condition or the appearance of new urologic symptoms. Compliance is encouraged with any medications and followup testing that is ordered. It is a privilege to participate in the urologic care of your patient. If you have any questions or concerns regarding treatment for the above conditions, or other urologic issues, please do not hesitate to contact me. The office tele phone contact is [phone]. Sincerely, Dr Rad Hines MD, [facility] - Urology Compassionate Specialist Care for the Genitourinary System Coding Level of Care Code Est Pt Level 4 (21062) Diagnoses BPH (benign prostatic hyperplasia) N40.0 Hypogonadotropic hypogonadism E23.0 CPT Codes Post Residual Void - PVR CPT Code: 07567-Gsru Void Residual by ultrasound ([id number])
--- OUTSIDE RECORDS SUMMARY | 2024-11-16 18:35 | XMS_ITS | Clinical Summary ---
Author Organization [facility] Address [address] [id number] Care Team Providers Care Substation Operator Conversion Name Role Phone Unavailable Primary Care Provider Unavailabl e Allergies Active Allergy Reactions Criticality Noted Date Comments Iodinated Contrast Media 03/18/2019 Medications Medication Sig Dispensed Refills Start Date End Date Status aspirin EC 81 MG tablet Take 81 mg by mouth daily. 0 Active levothyroxine (SYNTHROID, LEVOXYL) tablet 125 mcg Take 125 mcg by mouth every morning on an empty stomach. 0 Active oxybutynin (DITROPAN) 5 MG tablet Take 10 mg by mouth 3 (three) times a day. 0 Active famotidine (PEPCID) 40 MG tablet Take 40 mg by mouth daily. 0 Active dulaglutide (TRULICITY) 0.75 MG/0.5ML subcutaneous pen-injector Inject under the skin. 0 Active atorvastatin (LIPITOR) tablet 40 mg Take 40 mg by mouth daily. 0 Active metoprolol succinate (TOPROL-XL) 24 hr tablet 100 mg Take by mouth daily. 0 Active dapagliflozin (FARXIGA) tablet 5 mg Take by mouth. 0 Active metFORMIN (GLUCOPHAGE) tablet 1000 mg Take 1,000 mg by mouth 2 (two) times a day with meals. 0 Active glipiZIDE (GLUCOTROL) tablet 10 mg Take 10 mg by mouth 2 (two) times a day before breakfast and dinner. 0 Active pantoprazole (PROTONIX) 40 MG tablet Take 40 mg by mouth 2 (two) times a day. 0 Active ferrous sulfate 325 (65 FE) MG tabletIndications:Iro n deficiency anemia due to chronic blood loss TOME GILDA TABLETA TODOS [place] GUTIERREZ ON EMPTY STOMACH WITH VITAMIN C 90 tablet 3 10/28/2021 Active vitamin C (ASCORBIC ACID) 500 MG tablet TOME GILDA TABLETA POR VIA ORAL TODOS [place] GUT[place]REZ 90 tablet 1 11/27/2023 Active Active Problems Problem Noted Date Diagnosed Date Palpitations 12/28/2019 Renal cyst 12/28/2019 Iron deficiency anemia due to chronic blood loss 06/28/2019 Weight loss 06/28/2019 Obstructive uropathy 06/28/2019 Family History Medical History Relation Name Comments No Sig Med Hx Brother No Sig Med Hx Mother No Sig Med Hx Sister Relation Name Status Comments Brother Alive Father Mother Alive Sister Alive Social History Tobacco Use Types Packs/Day Years Used Date Smoking Tobacco: Former Cigarettes Q uit: 09/14/1998 Smokeless Tobacco: Never Alcohol Use Standard Drinks/Week Comments No 0 (1 standard drink = 0.6 oz pur e alcohol) Sex and Gender Information Value Date Recorded Sex Assigned at Not on file Gender Identity Not on file Sexual Orientation Not on file Job Start Date Occupation Industry Not on file Not on file Not on file Last Filed Vital Signs Vital Sign Reading Time Taken Comments Blood Pressure 121/53 08/20/2022 3:22 PM EST Pulse 63 08/20/2022 3:22 PM EST Temperature 36.1 ??C (97 ??F) 08/20/2022 3:22 PM EST Respiratory Rate - - Oxygen Saturation 97% 08/20/2022 3:22 PM EST Inhaled Oxygen Concentration - - Weight 64.3 kg (141 lb 12.8 oz) 08/20/2022 3:22 PM EST Height 167.6 cm (5' 6 ) 08/20/2022 3:22 PM EST Body Mass Index 22.89 08/20/2022 3:22 PM EST Plan of Treatment Health Maintenance Due Date Last Done Comments Hepatitis C Screening 1954 Depression Screening 1966 Preventative Health Evaluation 1972 DTap / Tdap / Td (1 - Tdap) 1973 Colon Cancer Screening (Colonoscopy) 1999 Shingrix-Zoster Vaccine (1 of 2) 2004 Fall Risk Assessment 2019 COVID-19 Vaccine (2 - season) 2024 08/16/2021 Influenza Vaccine (#1) 2024 , 06/18/2020, 06/29/2019, Additional history exists Pneumococcal Vaccine (3 of 3 - PPSV23 or PCV20) 01/12/2025 01/13/2020, 08/07/2007 RSV Adult > 60+ Yrs or (1 - 1-dose 75+ series) 2029 Hepatitis B Vaccines Aged Out No long er eligible based on patient's age to complete this topic RSV Ped < 20 months Aged Out No longe r eligible based on patient's age to complete this topic
--- OUTSIDE RECORDS SUMMARY | 2024-11-16 18:35 | XMS_ITS | Clinical Summary ---
Author Organization [facility] Address [address] [place] [address] Phone Care Team Providers Care Network Engineering Advisor Name Role Phone Alli Kennedy MD Primary Care Provider [phone]- [phone] Allergies Active Allergy Reactions Criticality Noted Date Comments Iodinated Contrast Media Rash High 07/20/2024 Medications apixaban (ELIQUIS) 5 mg tabletIndications:pr event thromboembolism in chronic atrial fibrillation Take 1 tablet (5 mg total) by mouth 2 (two) times a day. 60 each 4 Active gabapentin (NEURONTIN) 100 mg capsule Take 1 capsule (100 mg total) by mouth 2 (two) times a day. 60 each 4 Active insulin glargine (LANTUS) 100 unit/mL injectionIndications :type 2 diabetes mellitus Inject 28 Units under the skin at bedtime. 4 Active levothyroxine (SYNTHROID, LEVOTHROID) 100 mcg tablet Take 1 tablet (100 mcg total) by mouth 1 (one) time each day before breakfast. 30 each 4 Active metoprolol succinate (TOPROL-XL) 50 mg 24 hr tablet Take 1 tablet (50 mg total) by mouth 1 (one) time each day. Do not crush or chew. 30 each 4 Active ferrous gluconate (FERGON) 324 mg (38 mg iron) tabletIndications:PV D (peripheral vascular disease) ([facility]Anemia, unspecified type Take 1 tablet (324 mg total) by mouth 1 (one) time each day. 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 No residual weakness PVD (peripheral vascular disease) 07/21/2024 Acquired hypothyroidism 07/21/2024 H/O rotator cuff surgery 07/21/2024 Hypotension 07/21/2024 ICD (implantable cardioverte r-defibrillator), single, in situ 07/21/2024 Adrenal insufficiency 07/21/2024 BPH (benign prostatic hyperplasia) 07/21/2024 CAD (coronary artery disease) 07/20/2024 Assessment & Plan (07/21/2024 10:28 AM EST): History of nonobstructive hypertrophic cardiomyopathy followed by [facility] in [place] ASHLEY (obstructive sleep apnea) Surgical History Surgery Date Site/Laterality Comments OTHER SURGICAL HISTORY PROCEDURE: MD RMVL TOT DISC ARTHRP ANT 1 INTERSPACE LUMBAR OTHER SURGICAL HISTORY PROCEDURE: SHOULDER ABDUCTION JOINT SANDEEP INCISIONAL HERNIA REPAIR PROCEDURE: MD IMPLANT MESH OPN HERNIA RPR/DEBRIDEMENT CLOSURE OTHER SURGICAL HISTORY PROCEDURE: HISTORY OTHER; COMMENT: billroth II GASTRIC BYPASS N/A SPINE SURGERY Medical History Medical History Date Comments Hypertension DX:Hypertension GERD (gastroesophageal reflux disease) 05/04/2019 DX:GERD (gastroesophageal reflux disease) Vitamin D deficiency 05/04/2019 DX:Vitamin D deficiency Hyperlipidemia 05/04/2019 DX:Hyperlipidemi a Iron deficiency anemia 05/04/2019 DX:Iron d eficiency anemia Constipation 05/04/2019 DX:Constipation; COMMENT: chronic BPH (benign prostatic hyperplasia) 05/04/2019 DX:BPH (benign prostatic hyperplasia) Claudication ([facility]) 05/04/2019 DX:Claudi cation ([facility]) A-fib ([facility]) 07/21/2024 Diabetes ([facility]) 07/21/2024 Hx of completed stroke 07/21/2024 PVD (peripheral vascular dis ease) ([facility]) 07/21/2024 Acquired hypothyroidism 07/21/2024 H/O rotator cuff surgery 07/21/2024 Hypotension 07/21/2024 ICD (implantable cardioverter-defibrillator), single, in situ 07/21/2024 Adrenal insufficiency ([facility]) 07/21/2024 ASHLEY (obstructive sleep apnea) Hypotension Family History Medical History Relation Name Comments Dementia Father Coronary artery disease Mother Relation Name Status Comments Father Mother Social History Tobacco Use Types Packs/Day Years Used Date Smoking Tobacco: Former Smokeless Tobacco: Never Alcohol Use Standard Drinks/Week Comments No 0 (1 standard drink = 0.6 oz pur e alcohol) Health Literacy Answer Date Recorded How often do you need to hav e someone help you when you read instructions, pamphlets, or other written material from your doctor or pharmacy? Never 08/05/2024 Caregiver: How often do you need to have someone help you when you read instructions, pamphlets, or other written material from your doctor or pharmacy? Not on file 08/05/2024 Transportation Answer Date Recorded Has the lack of transportati on kept you from meetings, work, or from getting things needed for daily living? No Has the lack of transportati on kept you from medical appointments or from getting medications? No 2024 Social Isolation Answer Date Recorded How often do you feel lonely or isolated from th ose around you? Never 08/04/2024 Interpersonal Safety Answer Date Record ed Physical Abuse 07/20/2024 Verbal Abuse 07/20/2024 Sex and Gender Information Value Date Recorded Sex Assigned at Not on file Legal Sex Male 2:32 PM EST Gender Identity Not on file Sexual Orientation Not on file Obstetrics History Last Filed Vital Signs Vital Sign Reading Time Taken Comments Blood Pressure 114/64 08/06/2024 9:00 AM EST Pulse 63 08/06/2024 9:00 AM EST Temperature 36.9 ??C (98.4 ??F) 08/06/2024 9:00 AM ES T Respiratory Rate 16 08/06/2024 9:00 AM EST Oxygen Saturation 100% 08/06/2024 9:00 AM EST Inhaled Oxygen Concentration - - Weight 62 kg (136 lb 9.6 oz) 07/31/2024 12:00 PM EST Height 173 cm (5' 8.11 ) 07/26/2024 11:12 AM EST Body Mass Index 20.7 07/26/2024 11:12 AM EST Plan of Treatment Health Maintenance Due Date Last Done Comments Diabetes: Annual Retina Eye Exam 1964 RSV Immunization Patients 60+ Years Old (1 - Risk 60-74 years 1-dose series) 2014 Abdominal Aortic Aneurysm (AAA) Screen 08/22/2022 Colorectal Cancer Screening: Colonoscopy 08/22/2022 Medicare Annual Wellness Visit 08/22/2022 Diabetes: Annual Urine Albumin-Creatinine Ratio (uACR) 08/26/2022 Zoster Vaccines (2 of 2) 01/11/2024 11/16/2023 COVID-19 Vaccine ( season) 2024 02/12/2022, 08/16/2021, 12/08/2020, Additional history exists Influenza Vaccine (#1) 2024 , 07/19/2022, 08/16/2021, Additional history exists Diabetes: Blood Sugar Control Test (HGBA1C) 07/18/2024 01/16/2024 Pneumococcal Vaccine: 50+ Years (3 of 3 - PCV20 or PCV21) 01/12/2025 01/13/2020, 08/07/2007 Diabetes: Annual Foot Exam 07/28/2025 07/28/2024 Depression Screening 08/04/2025 08/04/2024 Diabetes: Annual GFR (Glomerular Filtration Rate) 08/05/2025 08/05/2024, 08/02/2024, 07/28/2024, Additional history exists Hypertension/CHF/CAD Annual BMP Blood Test 08/05/2025 08/05/2024, 08/02/2024, 07/28/2024, Additional history exists Social Influencers of Health Screening 08/05/2025 08/05/2024 Falls Risk Assessment 08/06/2025 08/06/2024 Cholesterol Screening (Lipid Panel) 01/15/2029 01/16/2024 DTaP,Tdap,and Td Vaccines (2 - Td or Tdap) 10/26/2032 10/26/2022 Hepatitis C Screening Completed 08/05/2024, 024 HIB Vaccines Aged Out No longer eligi ble based on patient's age to complete this topic HPV Vaccines Aged Out No longer eligi ble based on patient's age to complete this topic Hepatitis A Vaccines Aged Out No long er eligible based on patient's age to complete this topic Hepatitis B Vaccines Aged Out No long er eligible based on patient's age to complete this topic IPV Vaccines Aged Out No longer eligi ble based on patient's age to complete this topic MMR Vaccines Aged Out No longer eligi ble based on patient's age to complete this topic Meningococcal ACWY Vaccine Aged Out N o longer eligible based on patient's age to complete this topic Meningococcal B Vacine Aged Out No lo nger eligible based on patient's age to complete this topic RSV Immunization Patients Under 20 months Aged Out No longer eligible based on patient's age to complete this topic Varicella Vaccines Aged Out No longer eligible based on patient's age to complete this topic Procedures Procedure Name Priority Date/Time Associated Diagnosis Comments HEPATITIS PANEL, ACUTE WITH REFLEX TO CONFIRMATION Add-On 08/05/2024 6:00 AM EST COMPREHENSIVE METABOLIC PANEL Routine 08/05/2024 6:00 AM EST from Last 3 Months or Most Recently Relevant to Health Maintenance Results * Hepatitis panel, acute with reflex to confirmation (08/05/2024 6:00 AM EST) Hepatitis B Surface Ag Negative Negative LAB CHEMISTRY METHOD 08/05/2024 12:44 PM EST [facility] Hepatitis A Antibody IgM Negative Negative LAB CHEMISTRY METHOD 08/05/2024 12:44 PM EST [facility] Hep B Core IgM Negative Negative LAB CHEMISTRY METHOD 08/05/2024 12:44 PM EST [facility] Hepatitis C Antibody Negative Negative LAB CHEMISTRY METHOD 08/05/2024 12:44 PM EST [facility] Blood Venous blood specimen / Unknown Venipuncture / Unknown 08/05/2024 6:00 AM EST 08/05/2024 6:34 AM EST Ashley SYED LAB BLOOD ORDERABLES Final R esult [facility] [address] [place] [address], [place] [phone] * (ABNORMAL) Comprehensive metabolic panel (08/05/2024 6:00 AM EST) Sodium 140 133 - 145 mmol/L LAB CHEMISTRY METHOD 08/05/2024 7:14 AM [facility] Potassium 4.4 3.5 - 5.5 mmol/L LAB CHEMISTRY METHOD 08/05/2024 7:14 AM [facility] Chloride 105 96 - 110 mmol/L LAB CHEMISTRY METHOD 08/05/2024 7:14 AM [facility] CO2 31 21 - 32 mmol/L LAB CHEMISTRY METHOD 08/05/2024 7:14 AM [facility] Anion Gap 4 3 - 11 LAB CHEMISTRY METHOD 08/05/2024 7:14 AM [facility] Glucose 79 70 - 100 mg/dL LAB CHEMISTRY METHOD 08/05/2024 7:14 AM [facility] BUN 19 5 - 25 mg/dL LAB CHEMISTRY METHOD 08/05/2024 7:14 AM [facility] Creatinine 0.74 0.70 - 1.30 mg/dL LAB CHEMISTRY METHOD 08/05/2024 7:14 AM [facility] eGFR 97 >=60 mL/min/1. 73m2 LAB CHEMISTRY METHOD 08/05/2024 7:14 AM [facility] Comment:Calculation based on the??Chronic Kidney Disease Epidemiology Collaboration (CKD-EPI) equation refit??without adjustment for race. BUN/Creatinine Ratio 25.7 LAB CHEMISTRY METHOD 08/05/2024 7:14 AM [facility] Calcium 9.0 8.5 - 10.5 mg/dL LAB CHEMISTRY METHOD 08/05/2024 7:14 AM [facility] AST (SGOT) 145(H) 10 - 42 unit/L LAB CHEMISTRY METHOD 08/05/2024 7:14 AM [facility] ALT (SGPT) 321(H) 10 - 60 unit/L LAB CHEMISTRY METHOD 08/05/2024 7:14 AM [facility] Alkaline Phosphatase 186(H) 42 - 121 unit/L LAB CHEMISTRY METHOD 08/05/2024 7:14 AM [facility] Total Protein 5.6(L) 6.0 - 8.0 g/dL LAB CHEMISTRY METHOD 08/05/2024 7:14 AM [facility] Albumin 2.7(L) 3.2 - 5.0 g/dL LAB CHEMISTRY METHOD 08/05/2024 7:14 AM [facility] Total Bilirubin 0.3 0.0 - 1.4 mg/dL LAB CHEMISTRY METHOD 08/05/2024 7:14 AM [facility] Blood Venous blood specimen / Unknown Venipuncture / Unknown 08/05/2024 6:00 AM EST 08/05/2024 6:34 AM EST Ashley SYED LAB BLOOD ORDERABLES Final R esult [facility] [address] [place] [address], from Last 3 Months or Most Recently Relevant to Health Maintenance Insurance [place]ICA[place] - [place] MEDICARE Advance Directives Documents on File Type Date Recorded Patient Mfts Expl anation Advance Directives and Living Will 07/28/2024 2:15 PM Advance Directives and Living Will 07/21/2024 2:06 PM HEALTH CARE PROXY * Full Code - Confirmed (Latest Code Status on File) Date Activated Date Inactivated Comments 2024 5:08 PM 08/06/2024 5:00 PM This code status was ascertained in the following way: Code status discussion: discussion with patient To update the patient's code status, place a code status order. Do not modify or discontinue any currently active code status orders. * Full Code - Default Date Activated Date Inactivated Comments 07/20/2024 8:17 PM 07/25/2024 11:03 AM This is or jef is used when code status has not been discussed with the patient, or code status is otherwise unknown/unconfirmed To update the patient's code status, place a code status order. Do not modify or discontinue any currently active code status orders. Healthcare Agents on File Name Relationship Healthcare Agent [facility] p Communication Karlos Slaughter Jr. [facility] Health Care Agent Huberalejandra Vann Second Alternate Health Care Agent Care Teams Network Engineering Advisor Relationship Specialty Start Date End Date Alli Kennedy MD [address] [place] [phone] PCP - General 12/02/23
== END 2024-11-16 16:11 | disposition home or self-care (01) ==
PROVIDERS: PCP Registered Nurse Psychiatric/Mental Health, Adult; Visit Provider Urology
DX: N40.0 Benign prostatic hyperplasia without lower urinary tract symptoms (principal); E23.0 Hypopituitarism; Z13.9 Encounter for screening, unspecified
CPT/HCPCS: 99214

== ENCOUNTER → 2024-11-16 15:21 | Outpatient (BNVA) | payer MEDICARE, MEDICAID, SELFPAY | PROVIDERS: PCP Registered Nurse Psychiatric/Mental Health, Adult; Visit Provider Urology | DX: N40.0 Benign prostatic hyperplasia without lower urinary tract symptoms (principal); N52.9 Male erectile dysfunction, unspecified; E11.9 Type 2 diabetes mellitus without complications; E23.0 Hypopituitarism | CPT/HCPCS: 51798; 81003; 99212 ==

== ENCOUNTER 2025-03-15 11:38 | Outpatient (REF) | payer MEDICARE, MEDICAID, SELFPAY ==
--- OUTSIDE RECORDS SUMMARY | 2023-03-30 05:30 | XMS_ITS | Continuity of Care Document ---
Author Organization [facility] Address [address] [place] [address] Dr [address]an [address] [place] [address] Phone Care Team Providers Care Central Supply Nurse Name Role Phone Juan HUSTON FACS RVT Ad MCCORMACK Unavailable Unavailable Procedures Procedure Date Duplex Scan-extrem Veins; Comp Office/Oupt E&M New Pt 30 Mins Advance Directives Directive Yes / No Effective Date File Name No Information Encounters Encounter Description Practice Location Reason(s) For Visit Diagnoses Date Provider Providers Copied on Encounter [facility], [address] [place] [address] Dr Rajan [address], [id number], tel:[phone] CVR - [facility] Chronic venous htn w oth comp of bilateral low extrm 3 Juan HUSTON FACS RVT E[place]ON Abraham. [address], [address], [place], [address], [place]. tel:[phone] Referring Provider: Bogdan Donis, [address], [place], [address]. tel:[phone] Office/Oupt E&M New Pt 30 Mins [facility], [address] [place] [address] Dr Rajan [address]ick [place], [id number], [place] tel:[phone] [facility] - [place] Pain in right lower legPain in left lower legPain in right legPain in left legType 2 diabetes mellitus without complicationsEs sential (primary) hypertensionAth scl heart disease of [place] coronary artery w/o ang pctrsCoronary atherosclerosis due to lipid rich plaqueCerebral infarction, unspecifiedCram p and spasm 3 Juan HUSTON FACS RVT [place] Abraham. [address] [facility] [address], [address], [place], [address], [place]. tel:[phone] Referring Provider: Bogdan Damon MD G[place], [address], [place], [address]. tel:[phone] Family History Family Member Type Diagnosis Age At Onset No Information Payers Payer name Insurance type Covered democrat ID Authoriza tion(s) Medicare DOROTHY ZULETA [id number] Medical Assistance DOROTHY WHITLEY [id number] Social History Type Description Quantity Date Captured Comments Sex Male Smoking Status No Information Chief Complaint And Reason For Visit No Information Reason For Referral Reason For Referral No Information Plan Of Treatment Date Type Action Status Goal Tobacco cessation counseling completed History Of Present Illness Encounter Date Complaint History Of Prese nt Illness No Information Functional Status Date Functional Assessmen t No Information Instructions Date Instruction Additional Infor nikkie Patient education booklet given Related to Pain in right lower leg Assessments Type Assessment Date No Information Patient Care Teams Name Effective Dates (start - stop) Status Members No Information
[2025-03-15 12:22] LABS: Appearance Urine Clear; Glucose Urine UA 500 mg/dL (Negative); PH 5.5 (5.0-9.0); Specific Gravity - Urine >= 1.030 (1.005-1.025); UMIC TRIGGER UA YES
--- OUTSIDE RECORDS SUMMARY | 2025-03-15 12:26 | XMS_ITS | Clinical Summary ---
Author Organization [facility] Address [address] [place] [address] Phone Care Team Providers Care Investment Counselor Name Role Phone Alli Kennedy MD Primary Care Provider +1- [phone] Allergies Active Allergy Reactions Criticality Noted Date [...] mg iron) tabletIndications:PV D (peripheral vascular disease) ([facility]),Anemia, unspecified type Take 1 tablet (324 mg total) by mouth 1 (one) time each day. 90 tablet 3 Active Active Problems Problem Noted Date Diagnosed Date Arteriosclerosis of autologo us arterial coronary artery bypass graft 2024 A-fib ([facility], [facility] V28) 07/21/2024 Diabetes ([facility], [facility] V28) 07/21/2024 Hx of completed stroke 07/21/2024 Assessment & Plan (07/21/2024 1:48 PM EST): Remote hx. No residual weakness PVD (peripheral vascular disease) ([facility]) 07/21/2024 Acquired hypothyroidism 07/21/2024 H/O rotator cuff surgery 07/21/2024 Hypotension 07/21/2024 ICD (implantable cardioverte r-defibrillator), single, in situ 07/21/2024 Adrenal insufficiency ([facility]) 07/21/2024 BPH (benign prostatic hyperplasia) 07/21/2024 CAD (coronary artery disease) 07/20/2024 Assessment & Plan (07/21/2024 10:28 AM EST): History of nonobstructive hypertrophic cardiomyopathy followed by [facility] in [place] ASHLEY (obstructive sleep apnea) Encounters Date Type Department Care Team Description 01/25/2025 2:15 PM EDT Office Visit Orthopedic Surgery - [address] [phone] Kirby Rocha DPM Controlled type 2 diabetes with neuropathy ([facility] V24, [facility] V28) (Primary Dx); PAD (peripheral artery disease) ([facility] V24); Arthritis of both feet; Metatarsalgia of left foot; Dermatophytosis, nail from Last 3 Months Surgical History Surgery Date Site/Laterality Comments OTHER SURGICAL HISTORY PROCEDURE: DC RMVL TOT DISC ARTHRP ANT 1 INTERSPACE LUMBAR OTHER SURGICAL HISTORY PROCEDURE: SHOULDER ABDUCTION JOINT SANDEEP INCISIONAL HERNIA REPAIR PROCEDURE: DC IMPLANT MESH OPN HERNIA RPR/DEBRIDEMENT CLOSURE OTHER [...] hyperplasia) 05/04/2019 DX:BPH (benign prostatic hyperplasia) Claudication ([facility]) 05/04/2019 DX:Cl audication ([facility]) A-fib ([facility], [facility] V28) 07/21/2024 Diabetes ([facility], [facility]) 07/21/2024 Hx of completed stroke 07/21/2024 PVD (peripheral vascular dis ease) ([facility]) 07/21/2024 Acquired hypothyroidism 07/21/2024 H/O rotator cuff surgery 07/21/2024 Hypotension 07/21/2024 ICD (implantable cardioverter-defibrillator), single, in situ 07/21/2024 Adrenal insufficiency ([facility]) 07/21/2024 ASHLEY (obstructive sleep apnea) Hypotension Family [...] 63 08/06/2024 9:00 AM EST Temperature 36.9 C (98.4 F) 08/06/2024 9:00 AM EST Respiratory Rate 16 08/06/2024 9:00 AM EST Oxygen Saturation 100% 08/06/2024 9:00 AM EST Inhaled Oxygen Concentration - - Weight 62 kg (136 lb 9.6 oz) 07/31/2024 12:00 PM EST Height 173 cm (5' 8.11 ) 07/26/2024 11:12 AM EST Body Mass Index 20.7 07/26/2024 11:12 AM EST Plan of Treatment Upcoming Encounters Date Type Department Care Team (Late st Contact Info) Description 04/06/2025 2:00 PM EDT Office Visit Orthopedic Surgery - [place] [address] [facility] [address] [place] [phone] Kirby Rocha, DEVANTE [address] [address] Health Maintenance Due Date Last Done Comments Diabetes: Annual Retina Eye Exam 1965 RSV Immunization Adult Patients (1 - Risk 60-74 years 1-dose series) 2014 Abdominal Aortic Aneurysm (AAA) Screen 08/22/2022 Colorectal Cancer Screening: Colonoscopy 08/22/2022 Medicare Annual Wellness Visit 08/22/2022 Diabetes: Annual Urine Albumin-Creatinine Ratio (uACR) 08/26/2022 Zoster Vaccines (2 of 2) 01/11/2024 11/16/2023 Diabetes: Blood Sugar Control Test (HGBA1C) 07/18/2024 01/16/2024 Pneumococcal Vaccine: 50+ Years (3 of 3 - PCV20 or PCV21) 01/12/2025 01/13/2020, 08/07/2007 COVID-19 Vaccine (7 - 2024-25 season) 2025 08/19/2024, 07/09/2022, 02/12/2022, Additional history exists Diabetes: Annual Foot Exam 07/28/2025 07/28/2024 Depression [...] 10/26/2022 Hepatitis C Screening Completed 08/05/2024, 024 Influenza Vaccine Completed 08/19/2024, , 07/19/2022, Additional history exists HIB Vaccines Aged Out No longer eligi [...] age to complete this topic Meningococcal B Vaccine Aged Out No l onger eligible based on patient's age to complete [...] 6:00 AM EST 08/05/2024 6:34 AM EST us Ashley SYED LAB BLOOD ORDERABLES Final R esult [facility] [address] [place] [address], [place] [phone] * (ABNORMAL) Comprehensive metabolic panel (08/05/2024 6:00 AM EST) Pathologist [facility] Sodium 140 133 - 145 mmol/L LAB CHEMISTRY METHOD 08/05/2024 7:14 AM EST [facility] Potassium 4.4 3.5 - 5.5 mmol/L LAB CHEMISTRY METHOD 08/05/2024 7:14 AM [facility] Chloride 105 96 - 110 mmol/L LAB CHEMISTRY METHOD 08/05/2024 7:14 AM EST [facility] CO2 31 21 - 32 mmol/L LAB CHEMISTRY METHOD 08/05/2024 7:14 AM EST [facility] Anion Gap 4 3 - 11 [...] [facility] Comment:Calculation based on the Chronic Kidney Disease Epidemiology Collaboration (CKD-EPI) equation refit without adjustment for race. BUN/Creatinine Ratio 25.7 LAB [...] mg/dL LAB CHEMISTRY METHOD 08/05/2024 7:14 AM EST [facility] Blood Venous blood specimen / Unknown Venipuncture / Unknown 08/05/2024 6:00 AM EST 08/05/2024 6:34 AM EST us Ashley SYED LAB BLOOD ORDERABLES Final R esult [facility] [address] [place] [address], [place] [phone] from Last 3 Months or Most Recently Relevant to Health Maintenance Insurance [place]ICA[place] - [place] MEDICARE Advance Directives Documents on File Type Date Recorded Patient Quality Assurance Monitor Final Expl anation Advance Directives and Living Will [...] Agents on File Name Relationship Healthcare Agent [facility] p Communication Karlos Sukhjinder Romero Son Health Care Agent Rodo Vann Second Alternate Health Care Agent Care Teams Investment Counselor Relationship Specialty Start Date End Date Alli Kennedy MD [address] [place] [phone] PCP - General 12/02/23
--- OUTSIDE RECORDS SUMMARY | 2025-03-15 12:26 | XMS_ITS | Data Portability ---
Author Organization ID - [facility], [facility] Address [address] [place] [address] Care Team Providers Care Jury Consultant Name Role Phone YVONNE BOND Referring Provider [phone] YVONNE BOND Primary Care Provider TORRES BERRY OTHER Assessment Encounter Date Assessment Date Assessment LastModified by Organization Details LastModified Time 08/26/2024 08/26/2024 Procedure/Date:r igh t shoulder decompression 06/29/2024 History: Doing well, no complications, postop course complicated by cardiac surgery, complains of pain right sided neck radiating into trapezius Exam: Wound benign, near full motion Radiographs: none Clinical Status: Doing well postoperatively Work Status/Plan:not applicable Physical Therapy Status: Continue per protocol Medication Prescriptions: [none given] Plan/Follow up:Medrol Dosepak prescribed for radicular pain, follow-up 6 weeks, home therapy advised [facility] speech recognition gas transfer operator software was used to create portions of this document. An attempt at proofreading has been made to minimize errors. Please call for corrections. [email or web address] Not available 08/26/2024 11:21:52 01/26/2025 01/26/2025 Assessment: 1. Cervical stenosis with myelopathy (progressive) 2. Cervical spondylolisthesis 3. Cervical radiculopathy 4. Poorly controlled diabetes mellitus 5. Multiple comorbid conditions including prior heart surgery Plan: After reviewing the patient's history, physical exam and studies I have decided the patients chronic illness with progression warrants elective major surgery. The patient has completed greater than 6 weeks of physician directed nonoperative management of this condition to include medications and physical therapy without improvement. Surgical Plan: - Recommended staged anterior and posterior cervical fusion - Anterior approach: diskectomy, cage placement, and plate fixation - Posterior approach: screw fixation - Staged procedures planned due to cardiac history - Likely C3-C6 involvement, though focused single-level C3-4 and focused C5-6 foraminotomy may be considered I have further discussed the natural progression of this disease as well as the operative and non-operative modalities that are appropriate for treating this disease. The known risks of surgery include infection, bleeding, damage to nerves and/or arteries, continued pain, loss of motion, spinal fluid leak, and the possible need for further surgeries. Risks of anesthesia such as nausea, vomiting, pneumonia, stroke, heart attack and . Pre-operative Plannin. Order new A1C and Vitamin D level 2. Follow-up after labs completed 3. Diabetes management crucial before proceeding with surgery ICD-10: M47.12 - Cervical spondylosis with myelopathy ICD-10: M43.12 - Spondylolisthesis, cervical region ICD-10: M54.12 - Radiculopathy, cervical region ICD-10: M48.02 - Spinal stenosis, cervical region [email or web address] Not available 01/26/2025 10:05:10 02/16/2025 02/16/2025 Dx:Rule out left rotator cuff tear Interval History:Ongoing chronic left shoulder pain, status post right shoulder surgery. Has never had left shoulder surgery. Has A pacemaker in place. SocHx: nonsmoker, nondrinker Past Medical/Surgical History/Meds/Allerg ies reviewed and charted ROS: negative Physical Exam: afebrile, vital signs stable, in no apparent distress, oriented to person/place/time. Gait symmetric. Skin intact without erythema. Heart RRR Lungs: clear Abdomen soft, nontender. LeftSHOULDER: no redness, warmth, deformity. Range of motion full in all planes with no stiffness. Strength 5/5 all muscle groups. Apprehension negative. Impingement sign Positive. Acromioclavicular joint nontender without irritability with cross body adduction. Neurovascular Exam wnl. Contralateral SHOULDER: no redness, warmth, deformity. Range of motion full in all planes with no stiffnes. Strength 5/5 all muscle groups. Apprehension negative. Impingement sign negative. Acromioclavicular joint nontender without irritability to cross body adduction. Neurovascular Exam wnl. New Studies: 4 views left shoulder benign, no GH arthritis Impression:Rule out rotator cuff tear left shoulder Plan: 1.CT arthrogram ordered, follow-up FluoroScan to discuss findings and options. [employer] speech recognition gas transfer operator software was used to create portions of this document. An attempt at proofreading has been made to minimize errors. Please call for corrections. [email or web address] Not available 02/16/2025 14:25:33 Plan of Treatment Reminders Order Date Submit Date Provider Last Modified By Organization Details Last Modified Time Details Appointments RECHECK 2024 09:00A Tona humphrey PA-C Not available Not available Not available Lab vitamin D, 25-hydrox y, total, serum 2024 025 CRAIG [facility] (Centralized Electronic Ordering - All Locations), Patient Can Go To The Location Of Their Choice, [id number] 01/27/2025 06:06:01 HbA1c (hemoglob in A1c), blood 2024 025 CRAIG [facility] (Centralized Electronic Ordering - All Locations), Patient Can Go To The Location Of Their Choice, [id number] 01/27/2025 06:06:00 Referral None recorded. Procedures None recorded. Surgeries None recorded. Imaging XR, shoulder, 2 or more view - 4v lt shoulder room 213 2024 025 [email or web address] [facility], [address], [facility] [address], [address], 02/22/2025 11:03:03 CT, cervical spine, w/o contrast - ct cervical spine without contreast for cervical radiculop athy and spondylot hesis 2024 025 [facility]iology (Scheduling, Multiplte Sites), [address] [place], [address], 01/26/2025 14:15:02 Medication Orders Mobic 15 mg tablet 2024 025 [email or web address] [facility] #[id number], [address] [place], [address], 10/10/2024 12:31:17 Medrol (Sami) 4 mg tablets in a dose pack 12/13/ 2024 03/04/2 025 ATHENAFAX [id number], [address] [place], [address], 11/15/2024 09:55:52 Patient TargetsNo targets recorded. Patient InstructionsNo instructions recorded. Reason for Referral None Reported. Results Created Date Observation Date Name Description Value Unit Range Abnormal Flag Note LastModifiedBy Organization Detail LastModifiedTime 01/27/2001/26/2025 HEMOG LOBIN A1C hemoglobin A1C 10.2 % 4.8-5. 6 above high normal Predi abete s: 5.7 - 6.4 Diabe laverne: >6.4 Glyce kylie contr ol for adult s with diabe laverne: <7.0 Not Available [facility] ([facility]) [address], [place], [address], 01/27/2025 06:06:00 01/27/2001/27/2025 VITAM IN D, 25-HY DROXY vitamin D, 25-hydroxy 20.9 NG/mL 30.0-1 00.0 below low normal Vitam in D defic iency has been defin ed by the Insti tute of Medic ine and an Endoc rine Socie ty pract ice guide line as a level of serum 25-OH vitam in D less than 20 ng/mL (1,2) . The Endoc rine Socie ty [facility] defin e vitam in D insuf ficie ncy as a level betwe en 21 and 29 ng/mL (2). 1. IOM (Inst itute of Medic ine). 2009. Dieta ry refer ence intak es for calci um and D. Demi thompson [place]: The Natio nal [facility] . 2. Musa pearce MF, Vineet gan [place], Onur off-F errconrad i GIRARD, et al. Evalu ation , treat ment, and preve ntion of vitam in D defic iency : an Endoc rine Socie ty clini jim pract ice guide line. JCEM. 2010; 96(7) :1911 -30. Not Available [facility] ([facility]) [address], [place], [address], 01/27/2025 06:06:01 01/27/20 25 12/01/2024 CT, cervi jim spine , w/o contr ast No observ ation record ed. BARCODE [facility] Radiology (Scheduling, Multiplte Sites) [address], [place], [address], 01/26/2025 14:15:02 01/27/20 25 12/26/2024 CT, cervi jim spine , w/o contr ast No observ ation record ed. BARCODE Not Available 2024 14:15:02 01/27/20 25 12/26/2024 CT, head + brain , w/o contr ast No observ ation record ed. BARCODE Not Available 2024 14:15:02 02/17/20 25 02/16/2025 XR, shoul jef, 2 or more view http:/ [email or web address] ?Encry pted=s hAaTro YD8dLq bEUv6g %2BXZw aYqtaq 0bqfl% 2Fg9IQ a4ajBk vP9nXo QUaueC m3YtLR FvZlgJ JJ8mAn HZtai3 0q5569 AC0Kla H2GV6e mKiQtr MwF INTERFACE [facility] [address], [place], [address], 02/16/2025 13:56:29 02/17/20 25 02/16/2025 XR, shoul jef, 2 or more view [email or web address] ?Encry pted=s hAaTro YD8dLq bEUv6g %2BXZw aYqtaq 0bqfl% 2Fg9IQ a4ajBk vP9nXo QUaueC m3YtLR FvZlgJ JJ8mAn HZtai3 7h5967 AC0Kla H2GV6e mKiQtr MwF INTERFACE [facility] [address], [place], [address], 02/16/2025 13:56:31 Result Notes Documentation Provider Name and Address Organization Details Recorded Time Xr, Shoulder, 2 Or More View : [email or web address] Encrypted=wiBsSssMO3nEpwL Uv6g%5DQOvmEqoim0yilh%2Fg 4FPn9jyYfaX8uRaIMqpsMg4Ft ZUUwAfsBNH3qIpUYshp24b580 3ND3AkkL5YI4vwBvYhgBxQ Not Available [facility] 02/16/2025 13:56: 30 Xr, Shoulder, 2 Or More View : [email or web address] Encrypted=ovIdLwdVN7dJlqI Uv6g%4ZRIaeMsxxo9hctm%2Fg 2LPs4rkRqkQ9lBeXDxmzZs3Iq YVGoBsgHDC7sYaLYpij72h552 5DV1QqfU4XO3xvDdAndAsN Not Available [facility] 02/16/2025 13:56: 31 Problems Name Problem SNOMED Code Status Onset Date Resolution Date Notes Provider Name and Address Organization Details Recorded Time Impingemen t syndrome of right shoulder region 4482406163432 02 Active 2023 Lester Garza MD [address], [place], [address] , [facility] 4 09:41:12 Carpal tunnel syndrome of right wrist 4967784590052 08 Active 2023 Lester Garza MD [address], [place], [address] , [facility] 4 09:41:13 Cervical spondylosi s 993489122 Active 2023 Lester Garza MD [address], [place], [address] , [facility] 4 09:41:14 Vitamin D deficiency 08243605 Active 2024 Lester Garza MD [address], [place], [address] , [facility] 5 10:03:51 Anticoagul ant therapy Active 2024 Lester Garza MD [address], [place], [address] , [facility] 5 10:03:51 Spondyloli sthesis 267640390 Active 2024 Lester Garza MD [address], [place], [address] , [facility] 5 10:03:59 Spinal stenosis in cervical region 32831001 Active 2011 Status : 'A'; Not Available [facility] 4 10:55:39 Degenerati ve abnormalit y Active 2011 Status : 'A'; Not Available [facility] 4 10:55:39 Neck pain 74469432 Active 2023 Lester Garza MD [address], [place], [address] , [facility] 4 09:43:23 Problem Notes None recorded. Procedures Surgical History Date Name Laterality Status Provider Name and Address Organization Details Recorded Time 07/15/20 24 01279 Therapeutic Exercise (1:1) cancelled Dameon Tellez PT [address], [place], [address], [facility] 07/14/2024 10:39:29 07/15/20 24 63765: Low complexity PT Eval cancelled Dameon Tellez PT [address], [place], [address], [facility] 07/14/2024 10:39:29 07/15/20 24 G8420 BMI Normal, No Follow-Up Plan Required cancelled Dameon Tellez PT [address], [place], [address], [facility] 07/14/2024 10:39:29 07/15/20 24 G8427 Current Medication Documented cancelled Dameonbennett Hurtadoliu, PT [address], [place], [address], [facility] 07/14/2024 10:39:29 07/11/20 49411 Therapeutic Exercise (1:1) cancelled Dameonbennett Hurtadoliu, PT [address], [place], [address], [facility] 07/11/2024 06:47:22 07/11/20 70982: Manual therapy cancelled Dameonbennett Hurtadoliu, PT [address], [place], [address], [facility] 07/11/2024 06:49:08 07/10/20 open heart surgery completed HELEN ROMAN [facility] 08/26/2024 11:01:25 07/08/20 03168 Therapeutic Exercise (1:1) completed Dameon Tellez, PT [address], [place], [address], [facility] 07/08/2024 08:03:55 07/08/20 05745: Low complexity PT Eval completed Dameon Tellez, PT [address], [place], [address], [facility] 07/08/2024 08:03:57 07/08/20 G8420 BMI Normal, No Follow-Up Plan Required completed Dameon Tellez, PT [address], [place], [address], [facility] 07/08/2024 11:36:51 07/08/20 G8427 Current Medication Documented completed Dameon Tellez, PT [address], [place], [address], [facility] 07/08/2024 11:36:57 06/22/20 Carpal Tunnel Kenalog 1cc injection, L/R completed Nayan Pichardo PA-C [address], [place], [address], [facility] 06/22/2024 16:41:57 surgical procedure on lumbar spine completed CASSIE PELLETIERJOSÉ [facility] 01/15/2024 08:58:11 procedure on shoulder completed CASSIE PELLETIERJOSÉ [facility] 01/15/2024 08:58:27 procedure on knee completed CASSIE PELLETIERJOSÉ [facility] 01/15/2024 08:58:46 Imaging Results None recorded. Procedure Notes None recorded. Medical Equipment None Reported. Allergies Allergen ID Allergen Name Allergen Category Reaction Reaction Severity Criticality Documentation Date Start Date Code Code System Note Provider Name and Address Organization Details Recorded Time 35045 Iodinated contrast media (substanc e) medicatio n Not available Not available Not available 11/16/20232008 22276 2003 SNOMED Aller gyNam e: 'Ivp Dye'; Aller gyRea ction : 'Skin React ion'; Not Available [facility] 10:54:11 Medications Name Sig Start Date Stop Date Status Note LastModified by Organization Details LastModified Time amoxicillin 500 mg capsule TOME 1 C PSULA POR V A ORAL CADA OCHO HORAS 12/02 completed Not Available Not Available Not Available metformin 500 mg tablet TOME GILDA TABLETA BY MOUTH 2 TIMES A DAY BEFORE BREAKFAST AND DINNE,INS TR:NEW DOSE active Not Available Not Available No t Available levothyroxi ne 175 mcg tablet TOME 1 TABLETA POR V A ORAL TODOS LOS D 11/15 completed Not Available Not Available Not Available acetaminoph en 325 mg tablet 11/15 completed Not Available Not Available Not Available naproxen 375 mg tablet TOME GILDA TABLETA DOS VECES AL D A CON ALIMENTO CUANDO SEA NECESARIO FOR LEFT SHOULDER PAIN 11/15 completed Not Available Not Available Not Available ammonium lactate 12 % lotion APPLY TO SOLES OF FEET DAILY. AT NIGHT WEAR SOCKS TO BED 03/15 completed Not Available Not Available Not Available Vitamin C 500 mg tablet TOME GILDA TABLETA POR V A ORAL TODOS LOS D 11/15 completed Not Available Not Available Not Available metoprolol succinate ER 50 mg tablet,exte nded release 24 hr TAKE 1 TABLET BY MOUTH EVERY DAY 11/15 completed Not Available Not Available Not Available meloxicam 15 mg tablet TOME 1 TABLETA POR V A ORAL TODOS LOS D FOR 30 DAYS active Not Available Not Available No t Available sucralfate 1 gram tablet TAKE 1 TABLET BY MOUTH 2 TIMES DAILY BEFORE MEALS 03/15 completed Not Available Not Available Not Available lisinopril 20 mg tablet TOME GILDA TABLETA TODOS LOS D 12/02 completed Not Available Not Available Not Available prednisone 5 mg tablet TAKE 2 TABLETS BY MOUTH EVERY MORNING AT 8AM FOR 2 DAYS, THEN TAKE ONLY 1 TABLET EVERY MORNING THEREAFTE R 11/15 completed Not Available Not Available Not Available meclizine 12.5 mg tablet TOME GILDA TABLETA POR V A ORAL DOS VECES AL D A CUANDO SEA NECESARIO FOR VERTIGO 11/15 completed Not Available Not Available Not Available amlodipine 5 mg tablet TAKE 1 TABLET BY MOUTH EVERY DAY 11/15 completed Not Available Not Available Not Available aspirin 81 mg tablet,rex yed release TOME 1 TABLETA POR V A ORAL TODOS LOS D active Not Available Not Available No t Available acetaminoph en ER 650 mg tablet,exte nded release TOME DOS TABLETAS POR V A ORAL CADA OCHO HORAS POR 10 D NEEDED FOR FEVER 12/02 completed Not Available Not Available Not Available meloxicam 7.5 mg tablet TAKE 1 TABLET BY MOUTH ONCE A DAY. DO NOT TAKE WITH OTHER NSAIDS. 12/02 completed Not Available Not Available Not Available levothyroxi ne 100 mcg tablet TOME 1 TABLETA POR V A ORAL TODOS LOS D active Not Available Not Available No t Available verapamil ER 180 mg 24 hr capsule,ext ended release TOME GILDA C PSULA TODOS LOS D 03/15 completed Not Available Not Available Not Available methocarbam ol 750 mg tablet TOME GILDA TABLETA POR V A ORAL CADA SEIS HORAS 11/15 completed Not Available Not Available Not Available tamsulosin 0.4 mg capsule TOME 1 C PSULA POR V A ORAL TODOS LOS D active Not Available Not Available No t Available prednisone 1 mg tablet TOME 7 TABLETAS POR V A ORAL TODOS LOS D FOR 30 DAYS active Not Available Not Available No t Available OneTouch Ultra Test strips USE TO TEST BLOOD SUGAR 3 TIMES DAILY 11/15 completed Not Available Not Available Not Available amitriptyli ne 10 mg tablet TOME 1 TABLETA POR V A ORAL TODOS LOS D AL ACOSTARSE active Not Available Not Available No t Available benzonatate 100 mg capsule TOME 1 C PSULA POR V A ORAL RUSTY VECES AL D A FOR 7 DAYS 12/02 completed Not Available Not Available Not Available cephalexin 500 mg capsule TOME 1 C PSULA POR V A ORAL CUATRO VECES AL D A POR 7 D 03/15 completed Not Available Not Available Not Available pantoprazol e 40 mg tablet,rex yed release TOME GILDA TABLETA DOS VECES AL D A 11/15 completed Not Available Not Available Not Available pseudoephed rine-guaife nesin ER 80-700 mg tablet,exte nded release Percocet 5-325MG Tablet 1 every 4 - 6 hours as needed 10/21 completed Statu s: 'Disc ontin ued'; Not Available Not Available Not Available metformin 1,000 mg tablet TOME GILDA TABLETA DOS VECES AL D A 11/15 completed Not Available Not Available Not Available lisinopril 10 mg tablet TOME GILDA TABLETA POR V A ORAL TODOS LOS D active Not Available Not Available No t Available levothyroxi ne 150 mcg tablet TOME GILDA TABLETA POR V A ORAL TODOS LOS D 12/02 completed Not Available Not Available Not Available hydrocortis one 20 mg tablet TOME GILDA TABLETA POR V A ORAL TODOS LOS D 11/15 completed Not Available Not Available Not Available docusate sodium 100 mg capsule TOME 1 C PSULA POR V A ORAL DOS VECES AL D A 11/15 completed Not Available Not Available Not Available gabapentin 300 mg capsule TOME 1 C PSULA POR V A ORAL RUSTY VECES AL D A active Not Available Not Available No t Available alcohol swabs USE DIRECTED 11/15 completed Not Available Not Available Not Available gabapentin 100 mg capsule 11/15 completed Not Available Not Available Not Available metoprolol succinate ER 25 mg tablet,exte nded release 24 hr TOME 1 TABLETA POR V A ORAL TODOS LOS D active Not Available Not Available No t Available methylpredn isolone 4 mg tablets in a dose pack take as directed 11/15 completed Not Available Not Available Not Available ondansetron 4 mg disintegrat ing tablet TOME GILDA TABLETA POR V A ORAL CADA SEIS A OCHO HORAS 11/15 completed Not Available Not Available Not Available fludrocorti sone 0.1 mg tablet TOME GILDA TABLETA POR V A ORAL TODOS LOS D active Not Available Not Available No t Available oxycodone 5 mg tablet Take 1 tablet every 4 hours by oral route. 11/15 completed Not Available Not Available Not Available cyclobenzap rine 5 mg tablet TAKE 1 TABLET BY MOUTH DAILY AT BEDTIME FOR 7 DAYS 03/15 completed Not Available Not Available Not Available rosuvastati n 10 mg tablet TOME 1 TABLETA POR V A ORAL TODOS LOS D FOR 90 DAYS active Not Available Not Available No t Available rosuvastati n 20 mg tablet TOME 1 TABLETA POR V A ORAL TODOS LOS D active Not Available Not Available No t Available duloxetine 60 mg capsule,del ayed release TOME 1 C PSULA POR V A ORAL TODOS LOS D active Not Available Not Available No t Available OneTouch UltraSoft Lancets USE 3 TIMES DAILY 03/15 completed Not Available Not Available Not Available biotin 1 mg tablet TOME GILDA TABLETA TODOS LOS D 11/15 completed Not Available Not Available Not Available BD Ultra-Fine Short Pen Needle 31 gauge x 01/27 USE DIRECTED FOR TYPE 2 DIABETES MELLITUS. USE TWICE DAILY active Not Available Not Available No t Available ferrous gluconate 324 mg (38 mg iron) tablet TOME GILDA TABLETA TODOS LOS D 11/15 completed Not Available Not Available Not Available Lantus Solostar U-100 Insulin 100 unit/mL (3 mL) subcutaneou s pen INJECT 22 UNITS SUBCUTANE OUS INJECTION DAILY AT BEDTIME active Not Available Not Available No t Available diclofenac 1 % topical gel 2.25 INCHES TOPICALLY 4 TIMES A DAY,X30 DAYS,INST R:USE DOSING CARD TO MEASURE A DOSE active Not Available Not Available No t Available GaviLyte-G 236 gram-22.74 gram-6.74 gram-5.86 gram oral solution TAKE 8 OUNCE BY MOUTH DIRECTED FOLLOW PREP INSTRUCTI ONS GIVEN BY YOUR DOCTOR'S OFFICE 12/02 completed Not Available Not Available Not Available Gavilax 17 gram/dose oral powder TAKE 17 G BY MOUTH 1 (ONE) TIME EACH DAY. 11/15 completed Not Available Not Available Not Available Solu-Cortef Act-O-Vial (PF) 100 mg/2 mL solution for injection INJECT 100MG INTRAMUSC ULARLY EVERY 24 HOURS TO BE ADMINISTE RED AT THE TIME OF ADRENAL CRISIS BEFORE COMING TO THE HOSPITAL 11/15 completed Not Available Not Available Not Available Linzess 290 mcg capsule TOME 1 CAPSULA POR VIA ORAL TODOS LOS GUTIERREZ ROBERT LO INDICADO active Not Available Not Available No t Available Linzess Linzess 290MCG Capsule 04/21 completed Statu s: 'Disc ontin ued'; Not Available Not Available Not Available Eliquis 5 mg tablet TOME GILDA TABLETA POR V A ORAL DOS VECES AL D A SEG N LO INDICADO active Not Available Not Available No t Available Ferate 240 mg (27 mg iron) tablet 1 TABLET BY MOUTH EVERY THURSDAY, THURSDAY AND THURSDAY,X3 0 DAYS 11/15 completed Not Available Not Available Not Available Jardiance 25 mg tablet TOME GILDA TABLETA POR VIA ORAL CADA MANANA active Not Available Not Available No t Available Trulicity 1.5 mg/0.5 mL subcutaneou s pen injector INJECT 0.5 ML SUBCUTANE OUSLY INJECTION EVERY WEEK,FOR 4 WEEKS ROTATE INJECTION SITES 11/15 completed Not Available Not Available Not Available Trulicity 0.75 mg/0.5 mL subcutaneou s pen injector INJECT 1 PEN SUBCUTANE OUSLY ONCE WEEKLY 11/15 completed Not Available Not Available Not Available Admelog SoloStar U-100 Insulin lispro 100 unit/mL subcutaneou s pen INJECT 6 UNIT (0.06 ML) SUBCUTANE OUSLY 2 TIMES A DAY FOR 30 DAYS BEFORE BREAKFAST AND SUPPER active Not Available Not Available No t Available OneTouch Delica Plus Lancet 33 gauge USE SEG N LO INDICADO RUSTY VECES AL D A 03/15 completed Not Available Not Available Not Available magnesium 100 mg (as glycinate) capsule TOME 1 C PSULA POR V A ORAL TODOS LOS D 11/15 completed Not Available Not Available Not Available Vitals Date Recorded Body height Body mass index (BMI) Body weight Provider Name and Address Organization Details Last Updated DateTime 10/10/2024 172.72 cm 19.8 kg/m2 60665.01 g Aye Barrientos [facility] 10/10/2024 10:11:28 Date Recorded Body height Body mass index (BMI) Body weight Provider Name and Address Organization Details Last Updated DateTime 11/15/2024 172.72 cm 19.8 kg/m2 90452.01 [facility] 11/15/2024 09:52:48 Date Recorded Body height Body mass index (BMI) Body weight Provider Name and Address Organization Details Last Updated DateTime 01/26/2025 172.72 cm 19.8 kg/m2 75370.01 Jacob [facility] 01/26/2025 09:20:50 Date Recorded Body height Body mass index (BMI) Body weight Provider Name and Address Organization Details Last Updated DateTime 02/16/2025 172.72 cm 19.8 kg/m2 41963.01 elena HELEN ROMAN [facility] 02/16/2025 13:48:17 Date Recorded Body height Body mass index (BMI) Body weight Provider Name and Address Organization Details Last Updated DateTime 08/26/2024 172.72 cm 19.8 kg/m2 05914.01 elena HELEN [facility] 08/26/2024 11:00:46 Social History None recorded. Functional Status None recorded. Mental Status None recorded. Family History Nothing Reported. Medical History Condition Response Allergies/Hayfever N Coronary Artery Disease N Breathing or lung disorders N Anxiety/Depression N Emphysema N Nerve Disorders N Thyroid Problems Y COPD N Pacemaker N Kidney/Bladder Problems N Anemia N Vascular Disease N Heart Trouble Y Gastrointestinal Disease N Heart Attack (MD) N Cholesterol N Diabetes Y Autoimmune disease N Bleeding Disorder N Orthotics N Arthritis N Seizures/Epilepsy N Blood Clot N AIDS/HIV N Congestive Heart Failure (CHF) N Acid Reflux (GERD) N Cancer N Stroke N Asthma N Peripheral Vascular Disease N Sleep Apnea N Hepatitis N Heart Disease N Rheumatoid Arthritis N Arrhythmia N Pulmonary Embolism N Headaches N Fibromyalgia N Hypertension Y Osteoporosis N Past Encounters Encounter ID Performer Location Encounter Start Date Encounter Closed Date Diagnosis/Indication Diagnosis SNOMED-CT Code Diagnosis ICD10 Code Diagnosis Note [id number] JOSEPH Torres [address] [place] [address] 12/03/2023 09:28:48 12/03/2023 10:14:43 Neck pain 14173468 M54.2 Spinal igor nosis in cervical region 17293721 M48.02 [id number] Lester Garza MD [facility] [address] [place] [address] 01/15/2024 08:44:26 02/05/2024 10:58:32 Neck pain 52002729 M54.2 Spinal igor nosis in cervical region 46839801 M48.02 68-year-ol d male with cervical stenosis. He has a very complicate d picture and his symptoms are not entirely concordant . We discussed this with the use of a transmission calibration engineer as he only speaks Setswana. I will obtain his records from [facility]. Additional ly he states he had an EMG which I will order to find these results. Lastly he is a diabetic with his last A1c of 14.9. I will prescribe gabapentin 300 mg 3 times a day to help with his symptoms and he will follow-up when we have his records. Very poor surgical candidate at this time. [id number] Lester Garza MD [facility] [address] [place] [address] 03/07/2024 08:55:54 04/01/2024 09:12:47 Neck pain 83904902 M54.2 Impingemen t syndrome of right shoulder region 5707773493 13914 M75.41 Carpal meenakshi shahana syndrome of right wrist 7515507582 64031 G56.01 Cervical spondylosis 387 280288 M47.106 [id number] JOSEPH Aden [address] [place] [address] 03/15/2024 16:17:28 04/18/2024 13:35:37 [id number] Mick Adamson MD [facility] [address] [place] [id number] 04/04/2024 13:36:23 04/20/2024 15:33:38 Pain of right shoulder joint 2655036906 4562684 M25.440 [id number] Nayan Pichardo PA-C [facility] [address] [place] [id number] 06/22/2024 15:41:16 07/14/2024 07:56:01 [id number] Candy Adams PA-C [facility] [address] [place] [id number] 06/23/2024 12:16:32 07/15/2024 10:56:56 Cervical spondylosis 022098520 M47.049 [id number] Atfab Colvin PA-C [facility] [address] [place] [id number] 07/06/2024 13:17:30 07/29/2024 15:37:08 Impingement syndrome of right shoulder region 9215522455 66028 M75.41 [id number] Dameon Tellez, PT [facility] [address] [place] [id number] 07/08/2024 10:19:40 07/08/2024 13:44:40 Biceps tendinitis 362531329 M75.21 [id number] Mick Adamson MD [facility] [address] [place] [id number] 08/26/2024 10:04:18 09/20/2024 12:54:27 Neck pain 33577446 M54.2 Impingemen t syndrome of right shoulder region 3269465150 05270 M75.41 [id number] Candy Adams PA-C [facility] [address] [place] [id number] 10/10/2024 09:51:51 11/02/2024 10:13:56 Cervical radiculopathy 86678703 M54.12 [id number] Lester Garza MD [facility] [address] [place] [id number] 11/15/2024 09:37:06 11/30/2024 10:16:38 Cervical spondylosis 206191882 M47.812 Spinal igor nosis in cervical region 64887758 M48.02 1. Cervical spondylosi s with myelopathy , evidenced by positive Bangura's sign and spinal cord signal changes on MRI2. Cervical radiculopa thy, bilateral upper extremitie s3. Cervical spinal stenosis, severe at multiple levels4. Cervical spondyloli sthesis at C4-55. Failed conservati ve management including oral steroids, NSAIDs, and injections 1. CT scan of cervical spine ordered to further assess:- Spondyloli sthesis- Spondylosi s- Retroverte bral thickening noted on MRI possibly PLL ossificati on2. Laboratory studies ordered including updated HbA1c3. Continue current medication s including meloxicam4 . Follow-up after imaging to discuss likely surgical interventi on given failure of conservati ve measures and presence of myelopathy ICD-10: M47.12 - Cervical spondylosi s with myelopathy ICD-10: M50.12 - Cervical disc disorder with radiculopa thyICD-10: M47.812 - Spondylosi s without myelopathy or radiculopa thy, cervical regionICD- 10: M43.12 - Spondyloli sthesis, cervical region [id number] MD [facility] [address] [place] [id number] 01/26/2025 08:52:41 02/08/2025 09:38:07 Vitamin D deficiency 07310157 E55.9 Anticoagulant therapy 18 4340615 Z79.01 Z01.812 R73.09 Spinal igor nosis in cervical region 88484700 M48.02 Spondylolisthesis 669295 003 M43.12 [id number] MD [facility] [address] [place] [id number] 02/16/2025 13:35:35 02/22/2025 11:03:03 Pain of left shoulder joint 6095246505 4471966 M25.512 Health Concerns Section Related Observation LastModified by Organization Detai ls LastModified Time None Recorded Concern Status LastModified by Organization Details LastModified Time None Recorded Advance Directives Directive None Recorded Payers Insurance Date Sequence Insurance Name Policy Number Policy [place] Covered Member ID [place] Member ID Guarantor Name 02/16/2025 2 [place] [facility] Karlos Jasso [id number] Karlos Slaughter 02/16/2025 1 [place] [employer] Karlos Slaughter [id number] Karlos Slaughter 02/15/2025 [employer] CLAIMS (MEDICARE DME REGION A) Karlos Slaughter [id number] Karlos Slaughter Notes Date Note Type Note Provider Name and Address Organization Details Recorded Time 10/10/2024 text/html I am seeing the patient today under the supervision of Dr. Handy who was available but who did not see the patient. HPI: Patient presents for a recheck of ongoing neck pain. Patient is status post right shoulder surgery with Dr. Adamson in June 2024. He presented with right sided neck and radiating _ arm pain, paresthesias and upper extremity weakness. The patient was started on a medrol dose sami last month without much improvement. Denies issues with balance or fine motor skill deterioration. No clear etiology. Worsening overtime. TREATMENTS: Bed rest, activity modification, heat/ice, home exercise cervical stabilization program over the past 3 months, and NSAIDs. Past family, medical, social history and review of systems has been reviewed, updated and signed by me and is located in the patient's chart. Examination: The patient is well appearing, alert and oriented x3 and in no acute distress. Gait is normal. Inspection of the neck reveals no step off, deformity or overlying skin changes. Range of motion is 60% of normal. Nontender over the midline.Tender over the paracervical musculature and scapulothoracic region. Shoulder exam benign. No focal deficits distally. No atrophy. Normal reflexes. Negative Bangura. No new imaging Impression/Plan: Neck pain/Cervical DDD/Cervical radiculitis. Discussed the nature of the problem with the patient. Will switch to Mobic. Risks and benefits reviewed. Patient requests follow-up with Dr. Garza who he has seen in the past. [facility] speech recognition gas transfer operator software was used to create portions of this document. An attempt at proofreading has been made to minimize errors. Please call for corrections. Candy Adams PA-C [address], [place], [address], [facility] 10/20/2024 10:37:46 11/15/2024 text/html HPI: 69-year-old male presents with chronic neck pain radiating bilaterally into shoulders and both arms. Pain is predominantly left-sided in the neck and radiates down into bilateral trapezius muscles. Patient reports chronic symptoms that have been present for 'a long time.' Previous treatments including steroid injections in the neck provided minimal relief.Past Treatments: Previous cervical spine injections with minimal relief, right shoulder surgery with some improvement, previous oral steroids with minimal benefit, currently taking meloxicam. Has not undergone carpal tunnel surgery despite symptoms and prior EMG findings.Medical History: Significant for diabetes mellitus (last A1C 14.9 on 01/12/2024), atrial fibrillation on Eliquis, history of cardiac stents and open heart surgery, bilateral carpal tunnel syndrome. Lester Garza MD [address], [place], [address], [facility] 11/15/2024 13:05:35 01/26/2025 text/html Mr. Slaughter is a 69-year-old male with worsening neck pain radiating down bilateral upper extremities increased since last encounter.Reports bilateral shoulder weakness. Relevant Medical History:- Diabetes mellitus (Last A1C 14.9% on 01/12/2024)- Atrial fibrillation on Eliquis- History of cardiac stents and open heart surgery- Bilateral carpal tunnel syndrome Interval History:Patient was seen in the emergency department since last visit where CT scan of cervical spine and brain were completed. Lester Garza MD [address], [place], [address], [facility] 01/26/2025 10:05:26
--- OUTSIDE RECORDS SUMMARY | 2025-03-15 12:26 | XMS_ITS | Clinical Summary ---
Author Organization [facility] Address [address] [id number] Care Team Providers Care Lpn Private Duty Name Role Phone Unavailable Primary Care Provider [...] 63 08/20/2022 3:22 PM EST Temperature 36.1 C (97 F) 08/20/2022 3:22 PM EST Respiratory Rate - [...] COVID-19 Vaccine (2 - season) 2024 08/16/2021 Pneumococcal Vaccine (3 of 3 - PPSV23 or PCV20) 01/12/2025 01/13/2020, 08/07/2007 Influenza Vaccine (Season Ended) 2025 08/16/2021, 06/18/2020, 06/29/2019, Additional history exists RSV Adult > 60+ Yrs or (1 - 1-dose 75+ series) 2029 Hepatitis B Vaccines Aged Out No long er eligible based on patient's age to complete this topic RSV Ped < 20 months Aged Out No longe r eligible based on patient's age to complete this topic
== END 2025-03-15 11:39 | disposition home or self-care (01) ==
LOC: HO.LAB 11:38
PROVIDERS: Visit Provider Urology
DX: N40.0 Benign prostatic hyperplasia without lower urinary tract symptoms (principal)
CPT/HCPCS: 81001; 87086